=== PATIENT | female | born 1935 | race Caucasian/White ===

== ENCOUNTER 2020-04-11 09:41 | Inpatient (IN) | payer MEDICARE, SELFPAY ==
[2020-04-11] VITALS (32 sets, daily range): BP systolic 125–172; BP diastolic 51–77; PULSE 65–110; RESP 16–29; TEMP 36.5–37.3; O2SAT 74–94
--- NOTE | ~2020-04-11 | XR_ITS ---
EXAMINATION: XR chest 1V portable EXAM DATE: 04/11/2020 10:23 INDICATION: COVID+, hypoxia cough. TECHNIQUE: Portable AP frontal chest x-ray was obtained. There is no prior study for comparison. FINDINGS: Small amount of ill-defined left-sided pneumonia suspected. The lungs are otherwise clear. There are no pleural effusions. The cardiomediastinal silhouette is within normal limits. There is no pneumothorax suspected. There are mild bony degenerative changes. IMPRESSION: Probable small amount of left-sided ill-defined pneumonia. Reviewed, dictated and finalized at location B. [facility] [employer] DEVELOPMENT
--- NOTE | ~2020-04-11 | XR_ITS ---
EXAMINATION: XR chest 1V portable EXAM DATE: 04/15/2020 05:57 INDICATION: : COVID+, hypoxia cough. Hypertension. TECHNIQUE: Portable AP frontal chest x-ray was obtained. Comparison is made to prior examination from 04/11/2020. FINDINGS: There is been some progression in the now patchy multi segmental left basilar and smaller a mount of right basilar acute airspace disease, probably COVID pneumonia given history provided.. The re are no pleural effusions. The cardiomediastinal silhouette is within normal limits. There is no pneumothorax suspected. There are mild bony degenerative changes. IMPRESSION: Progression in left basilar greater than right COVID pneumonia. Reviewed, dictated and finalized at location A. X OPERATOR
--- NOTE | 2020-04-11 09:59 | ECG_ITS ---
Measurements Intervals [place] Rate: 95 P: 29 WV: 178 QRS: -28 QRSD: 89 T: 191 QT: 315 QTc: 397 Interpretive Statements SINUS RHYTHM POSSIBLE LEFT ATRIAL ENLARGEMENT BORDERLINE R WAVE PROGRESSION, ANTERIOR LEADS CONSIDER INFERIOR INFARCT, AGE INDETERMINATE BORDERLINE ST-T WAVE ABNORMALITY- HIGH LATERAL LEADS BASELINE ARTIFACT- I, II, AVR, AVL, AVF, V1, V4-V6 ABNORMAL ECG Electronically Signed On 04-11-2020 10:50:26 [employer] by Rubio Kauffman D.O.
[2020-04-11 10:09] LABS: Basophils Percent Auto 0.3 % (0.2-1.2); Eosinophils Absolute Auto 0.2 K/mm3 (0-0.3); Eosinophils Percent Auto 2.7 % (0-4.4); Hematocrit 41.8 % (37.0-47.0); Hemoglobin 14.3 g/dL (12.0-15.0); Immature Granulocyte Absolute 0.04 K/mm3 (0.00-0.031); Immature Granulocyte Percent A 0.5 % (0-0.5); Lymphocytes Absolute Auto 1.23 K/mm3 (0.9-3.2); Lymphocytes Percent Auto 15.9 % (18.3-44.2); Mean Corpuscular HGB Conc 34.2 g/dl (32-36); Mean Corpuscular Hemoglobin 29.7 pg (26-34); Mean Corpuscular Volume 86.9 fl (80-100); Monocytes Absolute Auto 0.6 K/mm3 (0.1-0.6); Monocytes Percent Auto 7.8 % (2.6-8.5); Neutrophils Absolute Auto 5.6 K/mm3 (1.3-6.7); Neutrophils Percent Auto 72.8 % (45.5-73.1); Platelet Count Result 159 k/mm3 (150-375); Red Blood Count 4.81 M/mm3 (4.2-5.4); Red Cell Distribution Width 11.9 % (11.5-14.5); White Blood Count 7.7 K/mm3 (4.5-10.0)
--- NOTE | 2020-04-11 10:11 | ED.URI ---
HPI - URI/Sore Throat General Chief Complaint: Upper Respiratory Infection Stated Complaint: COVID +. Cough Source: patient Mode of arrival: EMS Limitations: no limitations History of Present Illness HPI Narrative: This is a 84 year old female that presents to the ER for cold symptoms x 10 days. Reports fever, headache, cough, congestion, and myalgias. Tested positive for COVID about a week ago. Denies chest pain or shortness of breath. Related Data Home Medications Medication Instructions Recorded Confirmed aspirin 81 mg tablet,delayed 81 mg PO DAILY 10/28/19 03/30/20 release coenzyme Q10 100 mg capsule 200 mg PO DAILY cap 10/28/19 03/30/20 cyclosporine 0.05 % eye drops in a 1 drop EACH EYE Q12H 10/28/19 03/30/20 dropperette multivit with 1 tablet PO DAILY 10/28/19 03/30/20 uhtvskzs-qznf-KU-lutein 8 mg iron-400 mcg-300 mcg tablet omega-3 fatty acids 1,000 mg 1,000 mg PO DAILY 10/28/19 03/30/20 capsule timolol maleate 0.5 % eye drops 1 drop EACH EYE DAILY ml 10/28/19 03/30/20 vit C,E,zinc,copper-ockey1p 250 1 cap PO DAILY 10/28/19 03/30/20 mg-lutein 5 mg-zeaxanthin 1 mg capsule Allergies Allergy/AdvReac Type Severity Reaction Status Date / Time No Known Allergies Allergy Verified 04/11/20 09:57 Review of Systems Review of Systems: Narrative: CONSTITUTIONAL: Reports fever ENT: Reports rhinorrhea, congestion, sore throat CARDIOVASCULAR: Denies chest pain, or edema. RESPIRATORY: Reports cough. Denies dyspnea. 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 Unspecified glaucoma Unspecified urinary incontinence Surgical History Surgical History (Updated 04/11/20 @ 10:22 by Paty Monzon PA-C) History of hysterectomy Family History Family History Father Hypertension Family history of cardiovascular disease Mother Hypertension Family history of cardiovascular disease Other Family history of elevated blood lipids Family history of glaucoma Social History Social History Smoking status: Never smoker Alcohol intake: current Gender identity (if verbalized by the patient): Female Exam Narrative: Exam Narrative: GENERAL: Elderly, well-nourished, and in no acute distress. HEAD: Normocephalic, atraumatic. EYES: EOMI. ENT: Nares clear, no rhinorrhea or epistaxis. Mucous membranes moist. Oropharynx without tonsillar hypertrophy exudate or other lesions. Bilateral TMs pearly figueroa non-bulging NECK: Supple. No adenopathy or masses. CHEST: No respiratory distress. Rales in the lower lobes. No wheezes or rhonchi HEART: Regular rate and rhythm. No murmur heard. Normal peripheral pulses. EXTREMITIES: Normal range of motion. No edema. SKIN: Warm, dry, no rash. NEURO: No focal deficits. Alert and oriented x3. PSYCH: Normal mood and affect Course Consultations Consultation #1: Spoke with hospitalist about patient and work-up who accepts admission Date: 04/11/20 Time: 13:04 Vital Signs Vital signs: Vital Signs Pulse Rate 103 H 04/11/20 09:46 Respiratory Rate 18 04/11/20 09:46 Blood Pressure 170/77 H 04/11/20 09:46 Pulse Oximetry 93 04/11/20 09:46 Temperature 99.2 F 04/11/20 09:54 Pulse Rate 89 04/11/20 12:45 Respiratory Rate 27 H 04/11/20 12:45 B
[2020-04-11 10:19] LABS: INR 1.1
[2020-04-11 10:20] LABS: Partial Thromboplastin Time 27.4 SECONDS (22.3-36.8)
[2020-04-11 10:24] LABS: Alanine Aminotransferase 28 U/L (4-35); Albumin Level 4.1 g/dL (3.5-5.1); Alkaline Phosphatase 64 U/L (38-126); Anion Gap 9 mmol/L (8-16); Aspartate Amino Transferase 51 U/L (14-36); Bilirubin,Total 0.7 mg/dL (0.2-1.3); Blood Urea Nitrogen 17 mg/dL (7-17); CRP 6.2 mg/dL (<1.0); Calcium 8.9 mg/dL (8.4-10.2); Carbon Dioxide 27 mmol/L (22-30); Chloride 95 mmol/L (98-107); Estimated Glomerular Filt Rate > 60; Glucose 157 mg/dL (65-105); Lactate Dehydrogenase 820 U/L (313-618); Sodium 131 mmol/L (137-145)
[2020-04-11 10:25] LABS: Alveolar/Arterial O2 Gradient 103.5 mmHg; Base Excess ABG 0.6 mEq/l (+/-2.0); Carboxyhemoglobin 0.7 % THb (0-2.0); Fractional Inspired Oxygen 28 %; HCO3 ABG 24.4 mEq/l (22.0-26.0); Methemoglobin ABG 0.2 %THb (0-1.5); Oxygen Content ABG 17.1 %vol (16.0-22.0); Oxygen Saturation ABG 88.8 % (95.0-100.0); Oxyhemoglobin 87.1 % THb (90.0-100.0); PCO2 ABG 36.7 mmHg (35.0-45.0); PO2 ABG 52.8 mmHg (80.0-100.0); PO2 FiO2 Ratio Arterial Blood 1.89 %; pH ABG 7.441 (7.350-7.450)
[2020-04-11 10:26] LABS: Site Drawn LEFT BRACHIAL
[2020-04-11 10:27] LABS: Device NASAL CANNULA
[2020-04-11] MEDS: DEXAMETHASONE SOD PHOS INJ 4 MG/ML VIAL 6 MG IV PUSH (10:35)
--- NOTE | 2020-04-11 11:17 | PC.NURSE ---
received report from Sherice IZAGUIRRE. resting on stretcher. patient's also checked in here as a patient. both (+) covid. patient unable to keep RA sats >90%. planning for probable admission upstairs.
--- NOTE | 2020-04-11 11:55 | PC.NURSE ---
patient ambulated to restroom. sats down after ambulating. provider in room now. aware of planned admission. denies needs. alert. oriented. patient's also being admitted.
--- NOTE | 2020-04-11 12:46 | PC.NURSE ---
patient has orders for admission. also has orders for Remdesivir. labs ordered. waiting for bed assignment.
[2020-04-11] MEDS: REMDESIVIR 200 MG/NS 250 ML 200 MG/250 ML BAG 250 MG IVPB (13:23)
--- NOTE | 2020-04-11 13:27 | PC.NURSE ---
hospitalist SUPPLY CHAIN INTERN at bedside. Remdesivir started now. SBAR has been sent. will call to give report.
--- NOTE | 2020-04-11 13:29 | PC.NURSE ---
report given to RN on 3rd floor. will transfer patient to 332 via stretcher.
--- NOTE | 2020-04-11 13:50 | ADMGEN ---
This patient, Marie Wade, was admitted to [facility] Surg Room 332-02. Patient/family oriented to hospital policies and general routines including ID bracelet, bed and alarms, visiting hours, pain management, procedures, bathroom and other care routines, personal items, smoking policy, room service/diet, and visiting hours. Information on how to activate the Rapid Response Team has been discussed. Patient/Family are encouraged to report perceived risks to care and to ask questions if they do not understand what they are told or what they should do.
--- NOTE | 2020-04-11 14:27 | PM.IMHP ---
H&P: HPI History of Present Illness Date/Time: 04/11/20 14:27 Chief Complaint: Shortness of breath Narrative: Marie Wade is a 84 year old female who came to the emergency room with her . The patient has been having symptoms for at least 10 days. She has fever headache cough congestion and myalgias. The patient tested positive for COVID about a week ago. No chest pain but was short of breath upon exertion. She did not have a pulse ox at home and was not monitoring it. Her O2 saturation was 88.8 on her ABGs. And 52.8 on her PO2. Ferritin 346. AST was 51 ALT and alkaline phosphatase normal. Lactic dehydrogenase 828. C reactive protein 6.2 patient is COVID test was positive on 04/04/2020. Patient is requiring oxygen at 3 L at this time. Patient was given Decadron and remdesivir. patient is being admitted into inpatient status on the date of service of 04/11/2020 Review of Systems Review of Systems: All systems reviewed & are unremarkable except as noted in HPI and below Constitutional: Constitutional: Reports as per HPI and Reports no additional constitutional complaints Eyes: Eyes: Reports as per HPI and Reports no additional eye complaints ENT: Reports system reviewed and no additional complaints, except as documented and Reports Normal hearing present Cardiovascular: Cardiovascular: Reports no additional cardiovascular complaints Respiratory: Respiratory: Reports no additional respiratory complaints and Reports no additional respiratory complaints Gastrointestinal: Gastrointestinal: Reports as per HPI and Reports no additional gastrointestinal complaints Musculoskeletal: Musculoskeletal: Reports no additional musculoskeletal complaints Integumentary/Breasts: Skin/Breast: Reports system reviewed and no additional complaints, except as docu and Reports as per HPI Neurologic: Reports system reviewed and no additional complaints, except as documented, Reports as per HPI and Reports Normal hearing present Psychiatric: Psychiatric: Reports no additional psychiatric complaints and Reports as per HPI Endocrine: Endocrine: Reports no additional endocrine complaints Hematologic/Lymphatic: Hematologic/Lymphatic: Reports no additional hematologic/lymphatic complaints Allergic/Immunologic: Allergic/Immunologic: Reports no additional allergic/immunologic complaints [facility] Past Medical History Medical History (Updated 04/11/20 @ 14:48 by Laura Arnett NP) Actinic keratosis Atherosclerosis of aorta Diverticulosis of colon (without mention of hemorrhage) Essential (primary) hypertension Gastro-esophageal reflux disease with esophagitis Genetic susceptibility to other malignant neoplasm Glaucoma Hyperlipidemia, unspecified Hypothyroidism (acquired) Malignant neoplasm of uterus, part unspecified Nontoxic uninodular goiter Obesity (BMI 30.0-34.9) 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 She desires To have her2 children is a durable power associate attorney. typically she would have her is a durable power associate attorney however he is also sick COVID at this time. The patient desires to be a full code. 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 Lifelong nonsmoker l marijuana illicit drugs. Smoking s
[2020-04-11] MEDS: TIMOLOL MALEATE 0.5% OP SOLN 5 ML BOTTLE 1 DROP EACH EYE (20:45)
[2020-04-12 04:00] VITALS: BP 128/50; PULSE 75; RESP 18; TEMP 36.3; O2SAT 92
[2020-04-12] MEDS: LEVOTHYROXINE SODIUM 100 MCG TABLET PO (05:53)
[2020-04-12 06:51] LABS: Basophils Percent Auto 0.2 % (0.2-1.2); Hematocrit 40.1 % (37.0-47.0); Hemoglobin 13.9 g/dL (12.0-15.0); Immature Granulocyte Absolute 0.04 K/mm3 (0.00-0.031); Immature Granulocyte Percent A 0.6 % (0-0.5); Lymphocytes Absolute Auto 0.83 K/mm3 (0.9-3.2); Lymphocytes Percent Auto 12.5 % (18.3-44.2); Mean Corpuscular HGB Conc 34.7 g/dl (32-36); Mean Corpuscular Hemoglobin 29.8 pg (26-34); Mean Corpuscular Volume 86.1 fl (80-100); Mean Platelet Volume 11.3 fl (7.4-10.4); Monocytes Absolute Auto 0.5 K/mm3 (0.1-0.6); Monocytes Percent Auto 7.8 % (2.6-8.5); Neutrophils Absolute Auto 5.2 K/mm3 (1.3-6.7); Neutrophils Percent Auto 78.9 % (45.5-73.1); Platelet Count Result 154 k/mm3 (150-375); Red Blood Count 4.66 M/mm3 (4.2-5.4); Red Cell Distribution Width 11.8 % (11.5-14.5); White Blood Count 6.6 K/mm3 (4.5-10.0)
[2020-04-12 07:08] LABS: D Dimer 3.15 ug/mL (<0.48)
[2020-04-12 07:55] LABS: Alanine Aminotransferase 25 U/L (4-35); CRP 6.1 mg/dL (<1.0); Lactate Dehydrogenase 698 U/L (313-618)
[2020-04-12 08:00] VITALS: BP 131/60; PULSE 66; RESP 16; TEMP 36.6; O2SAT 95
[2020-04-12] MEDS: ASPIRIN 81 MG ENTERIC TABLET PO (08:44)
[2020-04-12] MEDS: cycloSPORINE 0.4 ML OPHTH SOLUTION 1 DROP EACH EYE (08:44)
[2020-04-12] MEDS: METOPROLOL SUCCINATE EXT REL 50 MG TABCR PO (08:45)
[2020-04-12] MEDS: DEXAMETHASONE SOD PHOS INJ 4 MG/ML VIAL 6 MG IV PUSH (08:45)
[2020-04-12] MEDS: ENOXAPARIN 40 MG/0.4 ML SYRINGE SUB-Q ×2 (08:45→20:25)
[2020-04-12] MEDS: THERAPEUTIC MULTIVITAMINS/MINERALS TAB (*BKC) 1 TABLET PO (08:46)
[2020-04-12] MEDS: OMEGA 3 POLYUNSAT FATTY ACIDS 1 GM CAP PO (08:46)
[2020-04-12] MEDS: OPTI-GEN TAB 1 TABLET PO (08:46)
[2020-04-12] MEDS: PANTOPRAZOLE 40 MG TABLET PO (08:47)
[2020-04-12] MEDS: REMDESIVIR 100 MG/NS 250 ML 100 MG/250 ML BAG 250 MG IVPB (10:20)
[2020-04-12 12:00] VITALS: BP 123/47; PULSE 75; RESP 14; TEMP 36.7; O2SAT 94
[2020-04-12 16:00] VITALS: BP 136/61; PULSE 73; RESP 14; TEMP 36.2; O2SAT 91
--- NOTE | 2020-04-12 16:09 | PM.IMPN ---
Progress Note: A&P Assessment and Plan (1) Pneumonia due to 2019 novel coronavirus: Code(s): U07.1 - COVID-19; J12.89 - Other viral pneumonia Status: Acute Assessment and Plan: Patient has had symptoms for 10 days and test positive 7 days ago -she continues to utilize oxygen is currently at 2 L. Will wean oxygen -continue Remdesivir, Decadron and Lovenox -continue using incentive spirometer (2) Essential (primary) hypertension: Code(s): I10 - Essential (primary) hypertension Status: Acute Assessment and Plan: Last blood pressure 123/47 - Continue with metoprolol (3) Hypothyroidism (acquired): Code(s): E03.9 - Hypothyroidism, unspecified Status: Chronic Assessment and Plan: Continue levothyroxine -no indication to check TSH at this time since she has no hypothyroid or hyperthyroid symptoms (4) Hyperlipidemia, unspecified: Code(s): E78.5 - Hyperlipidemia, unspecified Status: Chronic Assessment and Plan: Continue lovastatin at discharge . (5) Glaucoma: Code(s): H40.9 - Unspecified glaucoma Status: Acute Assessment and Plan: No acute issues -continue with home eye drops (6) Generalized anxiety disorder: Code(s): F41.1 - Generalized anxiety disorder Status: Chronic Assessment and Plan: Patient is overall doing okay today -continue with p.r.n. Ativan Time Spent With Patient Time with patient: 25 - 35 minutes Subjective Date/time seen: 04/12/20 16:09 Interval history: Pt is a 84-year-old female here for COVID-19 pneumonia. Patient was seen today and is doing okay. She is still utilizing oxygen but does not feel short of breath at rest or when walking to the bathroom. Her appetite has been improving and she is forcing herself to eat more. She is trying the Ensure. She states she has always had a murmur. She has some burning when she takes big breaths in her chest but no chest pain. She continues to cough and has some phlegm production. She denies nausea, vomiting, fevers, chills or leg swelling Review of Systems Review of Systems: All systems reviewed & are unremarkable except as noted in HPI and below Exam Narrative: Exam Narrative: General: Well developed well nourished patient in NAD HEENT: normocephalic Neck: supple Neuro: Alert and oriented x4 CV:RRR with systolic murmur Resp: Decreased breath sounds and she is unable to take large respirations without coughing Abd: Soft, non distended. No pain to palpation. Positive bowel sounds Extremities: No swelling, erythema, or pain to palpation. Objective Data Vital Signs Vital Signs: Vital Signs - 24 hr 04/11/20 17:06 04/11/20 20:00 04/11/20 23:54 Temperature 98.0 F 97.7 F 97.8 F Pulse Rate 78 65 Respiratory Rate 18 18 Blood Pressure 132/51 L 125/55 L Pulse Oximetry 90 90 04/12/20 04:00 04/12/20 08:00 04/12/20 12:00 Temperature 97.4 F L 97.8 F 98.1 F Pulse Rate 75 66 75 Respiratory Rate 18 16 14 Blood Pressure 128/50 L 131/60 123/47 L Pulse Oximetry 92 95 94 Intake/Output Intake/Output: Intake & Output 04/09/20 04/10/20 04/11/20 04/12/20 23:59 23:59 23:59 23:59 Intake Total 500 730 Output Total 850 650 Balance -350 80 Meds/Results Medications: Active Medications Generic Name Dose Route Start Last Admin Trade Name Freq PRN Reason Stop Dose Admin Aspirin 81 mg 04/12/20 09:00 04/12/20 08:44 Aspirin 81 Mg Enteric Tablet PO 81 mg DAILY MEGAN Administration Cyclosporine 1 drop 04/11/20 21:00 04/12/20 08:44 Cyclosporine 0.4 Ml Ophth Solution EACH EYE 1 drop Q12HR MEGAN Administration Dexamethasone Sodium Phosphate 6 mg 04/12/20 09:00 04/12/20 08:45 Dexamethasone Sod Phos Inj 4 Mg/Ml Vial IV PUSH 04/21/20 09:01 6 mg DAILY MEGAN Administration Enoxaparin Sodium 40 mg 04/12/20 21:00 Enoxaparin 40 Mg/0.4 Ml Syringe SUB-Q Q12HR SC
[2020-04-12 20:00] VITALS: BP 138/55; PULSE 74; RESP 20; TEMP 37.1; O2SAT 92
[2020-04-12] MEDS: TIMOLOL MALEATE 0.5% OP SOLN 5 ML BOTTLE 1 DROP EACH EYE (20:25)
[2020-04-13] VITALS (7 sets, daily range): BP systolic 112–151; BP diastolic 47–70; PULSE 65–79; RESP 18–20; TEMP 36.1–37.1; O2SAT 88–94
[2020-04-13] MEDS: LEVOTHYROXINE SODIUM 100 MCG TABLET PO (05:45)
[2020-04-13 06:53] LABS: Hematocrit 39.9 % (37.0-47.0); Hemoglobin 13.5 g/dL (12.0-15.0); Mean Corpuscular HGB Conc 33.8 g/dl (32-36); Mean Corpuscular Hemoglobin 29.3 pg (26-34); Mean Corpuscular Volume 86.7 fl (80-100); Mean Platelet Volume 10.8 fl (7.4-10.4); Platelet Count Result 200 k/mm3 (150-375); Red Cell Distribution Width 11.8 % (11.5-14.5); White Blood Count 9.3 K/mm3 (4.5-10.0)
[2020-04-13 07:11] LABS: Alanine Aminotransferase 24 U/L (4-35); Albumin Level 3.3 g/dL (3.5-5.1); Alkaline Phosphatase 52 U/L (38-126); Anion Gap 6 mmol/L (8-16); Aspartate Amino Transferase 39 U/L (14-36); Bilirubin,Total 0.4 mg/dL (0.2-1.3); Blood Urea Nitrogen 20 mg/dL (7-17); CRP 2.9 mg/dL (<1.0); Calcium 8.8 mg/dL (8.4-10.2); Carbon Dioxide 30 mmol/L (22-30); Chloride 97 mmol/L (98-107); Estimated CRCL calculation 56 ml/min; Estimated Glomerular Filt Rate > 60; Glucose 110 mg/dL (65-105); Lactate Dehydrogenase 710 U/L (313-618); Potassium 4.1 mmol/L (3.4-5.0); Sodium 133 mmol/L (137-145)
[2020-04-13] MEDS: OPTI-GEN TAB 1 TABLET PO (09:09)
[2020-04-13] MEDS: METOPROLOL SUCCINATE EXT REL 50 MG TABCR PO (09:09)
[2020-04-13] MEDS: ASPIRIN 81 MG ENTERIC TABLET PO (09:09)
[2020-04-13] MEDS: THERAPEUTIC MULTIVITAMINS/MINERALS TAB (*BKC) 1 TABLET PO (09:09)
[2020-04-13] MEDS: PANTOPRAZOLE 40 MG TABLET PO (09:09)
[2020-04-13] MEDS: DEXAMETHASONE SOD PHOS INJ 4 MG/ML VIAL 6 MG IV PUSH (09:10)
[2020-04-13] MEDS: TIMOLOL MALEATE 0.5% OP SOLN 5 ML BOTTLE 1 DROP EACH EYE (09:10)
[2020-04-13] MEDS: OMEGA 3 POLYUNSAT FATTY ACIDS 1 GM CAP PO (09:10)
[2020-04-13] MEDS: ENOXAPARIN 40 MG/0.4 ML SYRINGE SUB-Q ×2 (09:11→20:12)
[2020-04-13] MEDS: cycloSPORINE 0.4 ML OPHTH SOLUTION 1 DROP EACH EYE ×2 (09:11→20:12)
[2020-04-13] MEDS: REMDESIVIR 100 MG/NS 250 ML 100 MG/250 ML BAG 250 MG IVPB (09:21)
--- NOTE | 2020-04-13 14:50 | PM.IMPN ---
Progress Note: A&P Assessment and Plan (1) Pneumonia due to 2019 novel coronavirus: Code(s): U07.1 - COVID-19; J12.89 - Other viral pneumonia Status: Acute Assessment and Plan: Patient has had symptoms for 11 days and test positive 8 days ago -she continues to utilize oxygen is currently at 2 L. Will wean oxygen -continue Remdesivir, Decadron and Lovenox -continue using incentive spirometer (2) Essential (primary) hypertension: Code(s): I10 - Essential (primary) hypertension Status: Acute Assessment and Plan: Last blood pressure 133/50 - Continue with metoprolol (3) Hypothyroidism (acquired): Code(s): E03.9 - Hypothyroidism, unspecified Status: Chronic Assessment and Plan: Continue levothyroxine -no indication to check TSH at this time since she has no hypothyroid or hyperthyroid symptoms (4) Hyperlipidemia, unspecified: Code(s): E78.5 - Hyperlipidemia, unspecified Status: Chronic Assessment and Plan: Continue lovastatin at discharge . (5) Glaucoma: Code(s): H40.9 - Unspecified glaucoma Status: Acute Assessment and Plan: No acute issues -continue with home eye drops (6) Generalized anxiety disorder: Code(s): F41.1 - Generalized anxiety disorder Status: Chronic Assessment and Plan: Patient is overall doing okay today -continue with p.r.n. Ativan Subjective Date/time seen: 04/13/20 14:50 Interval history: Pt is a 84-year-old female here for COVID-19 pneumonia. Patient was seen today and is doing better than yesterday. She is able to take deeper breaths and does not have any shortness of breath at rest or when walking to the bathroom. She still has the burning in her lungs when she coughs but other than that feels okay. She has a decreased appetite and did not eat lunch but did drink her Ensure. Exam Narrative: Exam Narrative: General: Well developed well nourished patient in NAD HEENT: normocephalic Neck: supple Neuro: Alert and oriented x4 CV:RRR with systolic murmur Resp: Decreased breath sounds and she is unable to take large respirations without coughing, improved today Abd: Soft, non distended. No pain to palpation. Positive bowel sounds Extremities: No swelling, erythema, or pain to palpation. Objective Data Vital Signs Vital Signs: Vital Signs - 24 hr 04/12/20 16:00 04/12/20 20:00 04/13/20 00:00 Temperature 97.2 F L 98.7 F 98 F Pulse Rate 73 74 79 Respiratory Rate 14 20 20 Blood Pressure 136/61 138/55 L 124/63 Pulse Oximetry 91 92 94 04/13/20 05:00 04/13/20 06:00 04/13/20 08:00 Temperature 98.6 F 97.4 F L Pulse Rate 65 72 Respiratory Rate 20 18 Blood Pressure 136/52 L 112/47 L Pulse Oximetry 91 91 91 04/13/20 12:00 Temperature 98.7 F Pulse Rate 68 Respiratory Rate 20 Blood Pressure 133/50 L Pulse Oximetry 91 Intake/Output Intake/Output: Intake & Output 04/10/20 04/11/20 04/12/20 04/13/20 23:59 23:59 23:59 23:59 Intake Total 500 2560 660 Output Total 850 1050 800 Balance -350 1510 -140 Meds/Results Medications: Active Medications Generic Name Dose Route Start Last Admin Trade Name Freq PRN Reason Stop Dose Admin Aspirin 81 mg 04/12/20 09:00 04/13/20 09:09 Aspirin 81 Mg Enteric Tablet PO 81 mg DAILY MEGAN Administration Cyclosporine 1 drop 04/11/20 21:00 04/13/20 09:11 Cyclosporine 0.4 Ml Ophth Solution EACH EYE 1 drop Q12HR MEGAN Administration Dexamethasone Sodium Phosphate 6 mg 04/12/20 09:00 04/13/20 09:10 Dexamethasone Sod Phos Inj 4 Mg/Ml Vial IV PUSH 04/21/20 09:01 6 mg DAILY MEGAN Administration Enoxaparin Sodium 40 mg 04/12/20 21:00 04/13/20 09:11 Enoxaparin 40 Mg/0.4 Ml Syringe SUB-Q 40 mg Q12HR MEGAN Administration Fish Oil 1 gm 04/12/20 09:00 04/13/20 09:10 [place] 3 Polyunsat Fatty Acids 1 Gm Cap PO 1 gm DAILY MEGAN Administration Remdesiv
[2020-04-14] VITALS (10 sets, daily range): BP systolic 113–151; BP diastolic 50–90; PULSE 61–77; RESP 18–20; TEMP 36.3–36.9; O2SAT 86–95
[2020-04-14] MEDS: LEVOTHYROXINE SODIUM 100 MCG TABLET PO (06:11)
[2020-04-14 08:18] LABS: Alanine Aminotransferase 23 U/L (4-35); Anion Gap 3 mmol/L (8-16); Blood Urea Nitrogen 22 mg/dL (7-17); Calcium 8.5 mg/dL (8.4-10.2); Carbon Dioxide 34 mmol/L (22-30); Chloride 96 mmol/L (98-107); Estimated CRCL calculation 56 ml/min; Estimated Glomerular Filt Rate > 60; Glucose 97 mg/dL (65-105); Sodium 133 mmol/L (137-145)
[2020-04-14] MEDS: METOPROLOL SUCCINATE EXT REL 50 MG TABCR PO (09:20)
[2020-04-14] MEDS: ASPIRIN 81 MG ENTERIC TABLET PO (09:20)
[2020-04-14] MEDS: OMEGA 3 POLYUNSAT FATTY ACIDS 1 GM CAP PO (09:20)
[2020-04-14] MEDS: THERAPEUTIC MULTIVITAMINS/MINERALS TAB (*BKC) 1 TABLET PO (09:20)
[2020-04-14] MEDS: ENOXAPARIN 40 MG/0.4 ML SYRINGE SUB-Q ×2 (09:20→21:28)
[2020-04-14] MEDS: OPTI-GEN TAB 1 TABLET PO (09:20)
[2020-04-14] MEDS: PANTOPRAZOLE 40 MG TABLET PO (09:20)
[2020-04-14] MEDS: DEXAMETHASONE SOD PHOS INJ 4 MG/ML VIAL 6 MG IV PUSH (09:21)
[2020-04-14] MEDS: TIMOLOL MALEATE 0.5% OP SOLN 5 ML BOTTLE 1 DROP EACH EYE (09:21)
[2020-04-14] MEDS: cycloSPORINE 0.4 ML OPHTH SOLUTION 1 DROP EACH EYE ×2 (09:21→21:28)
[2020-04-14] MEDS: REMDESIVIR 100 MG/NS 250 ML 100 MG/250 ML BAG 250 MG IVPB (10:44)
--- NOTE | 2020-04-14 14:55 | PM.IMPN ---
Progress Note: A&P Assessment and Plan (1) Pneumonia due to 2019 novel coronavirus: Code(s): U07.1 - COVID-19; J12.89 - Other viral pneumonia Status: Acute Assessment and Plan: Patient has had symptoms for 12 days and test positive 9 days ago -she continues to utilize oxygen is currently at 1 L. Will wean oxygen -home O2 evaluation tomorrow -chest x-ray tomorrow morning -continue Remdesivir, Decadron and Lovenox -continue using incentive spirometer (2) Essential (primary) hypertension: Code(s): I10 - Essential (primary) hypertension Status: Acute Assessment and Plan: Last blood pressure 147/57 - Continue with metoprolol (3) Hypothyroidism (acquired): Code(s): E03.9 - Hypothyroidism, unspecified Status: Chronic Assessment and Plan: Continue levothyroxine -no indication to check TSH at this time since she has no hypothyroid or hyperthyroid symptoms (4) Hyperlipidemia, unspecified: Code(s): E78.5 - Hyperlipidemia, unspecified Status: Chronic Assessment and Plan: Continue lovastatin at discharge (5) Glaucoma: Code(s): H40.9 - Unspecified glaucoma Status: Acute Assessment and Plan: No acute issues -continue with home eye drops (6) Generalized anxiety disorder: Code(s): F41.1 - Generalized anxiety disorder Status: Chronic Assessment and Plan: Patient is overall doing okay today -continue with p.r.n. Ativan Subjective Date/time seen: 04/14/20 14:55 Interval history: Pt is a 84-year-old female here for COVID-19 pneumonia. Patient was seen today and is doing better. She is able to take deeper breaths without coughing. She did have some blood in her sputum today but that was just specks. She denies chest pain, nausea, vomiting, fevers, chills, leg swelling, abdominal pain, or dyspnea on exertion. She is walking to and from the bathroom without issue Exam Narrative: Exam Narrative: General: Well developed well nourished patient in NAD HEENT: normocephalic Neck: supple Neuro: Alert and oriented x4 CV:RRR with systolic murmur Resp: Decreased breath sounds and was able to take deeper breaths today Abd: Soft, non distended. No pain to palpation. Positive bowel sounds Extremities: No swelling, erythema, or pain to palpation. Objective Data Vital Signs Vital Signs: Vital Signs - 24 hr 04/13/20 16:00 04/13/20 20:00 04/14/20 00:00 Temperature 96.9 F L 98.6 F 98.2 F Pulse Rate 67 76 65 Respiratory Rate 20 20 20 Blood Pressure 133/70 151/55 H 129/50 L Pulse Oximetry 92 93 94 04/14/20 04:00 04/14/20 08:00 04/14/20 11:09 Temperature 98.2 F 97.8 F Pulse Rate 68 61 Respiratory Rate 20 20 Blood Pressure 151/53 H 113/51 L Pulse Oximetry 91 90 95 04/14/20 11:10 04/14/20 11:55 04/14/20 12:01 Temperature 98.4 F Pulse Rate 67 Respiratory Rate 20 Blood Pressure 147/57 H Pulse Oximetry 93 92 95 Intake/Output Intake/Output: Intake & Output 04/11/20 04/12/20 04/13/20 04/14/20 23:59 23:59 23:59 23:59 Intake Total 500 2560 2350 980 Output Total 850 1050 800 Balance -350 1510 1550 980 Meds/Results Medications: Active Medications Generic Name Dose Route Start Last Admin Trade Name Freq PRN Reason Stop Dose Admin Aspirin 81 mg 04/12/20 09:00 04/14/20 09:20 Aspirin 81 Mg Enteric Tablet PO 81 mg DAILY MEGAN Administration Cyclosporine 1 drop 04/11/20 21:00 04/14/20 09:21 Cyclosporine 0.4 Ml Ophth Solution EACH EYE 1 drop Q12HR MEGAN Administration Dexamethasone Sodium Phosphate 6 mg 04/12/20 09:00 04/14/20 09:21 Dexamethasone Sod Phos Inj 4 Mg/Ml Vial IV PUSH 04/21/20 09:01 6 mg DAILY MEGAN Administration Enoxaparin Sodium 40 mg 04/12/20 21:00 04/14/20 09:20 Enoxaparin 40 Mg/0.4 Ml Syringe SUB-Q 40 mg Q12HR MEGAN Administration Fish Oil 1 gm 04/12/20 09:00 04/14/20 09:20 [place] 3 Polyunsat
[2020-04-14] MEDS: MELATONIN 3 MG TABLET PO (21:28)
[2020-04-15] VITALS (9 sets, daily range): BP systolic 133–150; BP diastolic 43–61; PULSE 60–75; RESP 15–20; TEMP 36.1–37.1; O2SAT 90–94
[2020-04-15] MEDS: LEVOTHYROXINE SODIUM 100 MCG TABLET PO (05:20)
[2020-04-15 06:58] LABS: Hematocrit 38.8 % (37.0-47.0); Hemoglobin 13.3 g/dL (12.0-15.0); Mean Corpuscular HGB Conc 34.3 g/dl (32-36); Mean Corpuscular Hemoglobin 29.8 pg (26-34); Mean Platelet Volume 10.5 fl (7.4-10.4); Platelet Count Result 219 k/mm3 (150-375); Red Blood Count 4.46 M/mm3 (4.2-5.4); Red Cell Distribution Width 11.8 % (11.5-14.5); White Blood Count 7.3 K/mm3 (4.5-10.0)
[2020-04-15] MEDS: PANTOPRAZOLE 40 MG TABLET PO (08:27)
[2020-04-15] MEDS: OPTI-GEN TAB 1 TABLET PO (08:27)
[2020-04-15] MEDS: OMEGA 3 POLYUNSAT FATTY ACIDS 1 GM CAP PO (08:27)
[2020-04-15] MEDS: ASPIRIN 81 MG ENTERIC TABLET PO (08:27)
[2020-04-15] MEDS: THERAPEUTIC MULTIVITAMINS/MINERALS TAB (*BKC) 1 TABLET PO (08:27)
[2020-04-15] MEDS: DEXAMETHASONE SOD PHOS INJ 4 MG/ML VIAL 6 MG IV PUSH (08:28)
[2020-04-15] MEDS: ENOXAPARIN 40 MG/0.4 ML SYRINGE SUB-Q ×2 (08:28→20:18)
[2020-04-15] MEDS: METOPROLOL SUCCINATE EXT REL 50 MG TABCR PO (08:28)
[2020-04-15] MEDS: cycloSPORINE 0.4 ML OPHTH SOLUTION 1 DROP EACH EYE (08:30)
[2020-04-15 08:54] LABS: Alanine Aminotransferase 24 U/L (4-35); Anion Gap 2 mmol/L (8-16); Blood Urea Nitrogen 21 mg/dL (7-17); Calcium 8.8 mg/dL (8.4-10.2); Carbon Dioxide 36 mmol/L (22-30); Chloride 95 mmol/L (98-107); Estimated CRCL calculation 56 ml/min; Estimated Glomerular Filt Rate > 60; Glucose 94 mg/dL (65-105); Potassium 3.9 mmol/L (3.4-5.0); Sodium 133 mmol/L (137-145)
[2020-04-15 09:20] LABS: CRP 1.9 mg/dL (<1.0)
[2020-04-15] MEDS: REMDESIVIR 100 MG/NS 250 ML 100 MG/250 ML BAG 250 MG IVPB (10:13)
--- NOTE | 2020-04-15 10:54 | PM.IMPN ---
Progress Note: A&P Assessment and Plan (1) Pneumonia due to 2019 novel coronavirus: Code(s): U07.1 - COVID-19; J12.89 - Other viral pneumonia Status: Acute Assessment and Plan: Patient has had symptoms for about 2 weeks and test positive 11 days ago -she continues to utilize oxygen is currently at 1 L -she was off oxygen overnight but had some hypoxia this morning which was not documented and unknown. Home oxygen evaluation was ordered this morning but will move it to tomorrow -chest x-ray shows slight worsening but not concerning since the patient clinically is improving -continue Remdesivir (last dose today), Decadron and Lovenox -continue using incentive spirometer -likely d/c home tomorrow if pt off o2 -suggested she should not have Carlito with her family Saturday (2) Essential (primary) hypertension: Code(s): I10 - Essential (primary) hypertension Status: Acute Assessment and Plan: Last blood pressure 142/53 - Continue with metoprolol (3) Hypothyroidism (acquired): Code(s): E03.9 - Hypothyroidism, unspecified Status: Chronic Assessment and Plan: Continue levothyroxine -no indication to check TSH at this time since she has no hypothyroid or hyperthyroid symptoms (4) Hyperlipidemia, unspecified: Code(s): E78.5 - Hyperlipidemia, unspecified Status: Chronic Assessment and Plan: Continue lovastatin at discharge (5) Glaucoma: Code(s): H40.9 - Unspecified glaucoma Status: Acute Assessment and Plan: No acute issues -continue with home eye drops (6) Generalized anxiety disorder: Code(s): F41.1 - Generalized anxiety disorder Status: Chronic Assessment and Plan: Patient is overall doing okay today -continue with p.r.n. Ativan Subjective Date/time seen: 04/15/20 10:54 Interval history: Pt is a 84-year-old female here for COVID-19 pneumonia. Patient was seen today and is doing better. She is able to take deeper breaths without coughing. She was off o2 overnight but dropped under 90 this morning and had to be put on more o2. She did not feel SOB during this time. She denies chest pain, nausea, vomiting, fevers, chills, leg swelling, abdominal pain, or dyspnea on exertion. She is walking to and from the bathroom without issue. She wants to be discharged by saturday so she can have carlito with her family which I advised her not to do. Exam Narrative: Exam Narrative: General: Well developed well nourished patient in NAD HEENT: normocephalic Neck: supple Neuro: Alert and oriented x4 CV:RRR with systolic murmur Resp: Decreased breath sounds and was able to take deeper breaths today. on 1L of o2 Abd: Soft, non distended. No pain to palpation. Positive bowel sounds Extremities: No swelling, erythema, or pain to palpation. Objective Data Vital Signs Vital Signs: Vital Signs - 24 hr 04/14/20 11:09 04/14/20 11:10 04/14/20 11:55 Temperature Pulse Rate Respiratory Rate Blood Pressure Pulse Oximetry 95 93 92 04/14/20 12:01 04/14/20 15:58 04/14/20 16:00 Temperature 98.4 F 97.9 F Pulse Rate 67 65 Respiratory Rate 20 20 Blood Pressure 147/57 H 148/90 H Pulse Oximetry 95 92 94 04/14/20 20:00 04/15/20 00:00 04/15/20 04:00 Temperature 97.3 F L 97 F L 97.3 F L Pulse Rate 77 64 63 Respiratory Rate 18 16 16 Blood Pressure 148/52 H 133/43 L 145/61 H Pulse Oximetry 90 90 90 04/15/20 08:00 04/15/20 08:28 04/15/20 10:00 Temperature 97.8 F Pulse Rate 60 75 62 Respiratory Rate 16 17 Blood Pressure 142/53 H Pulse Oximetry 91 90 Intake/Output Intake/Output: Intake & Output 04/12/20 04/13/20 04/14/20 04/15/20 23:59 23:59 23:59 23:59 Intake Total 2560 2350 1820 150 Output Total 1050 800 Balance 1510 1550 1820 150 Meds/Results Medications: Active Medications Generic Name Dose Route Start Last Admin Trade Name Freq PRN R
[2020-04-15] MEDS: TIMOLOL MALEATE 0.5% OP SOLN 5 ML BOTTLE 1 DROP EACH EYE (20:18)
[2020-04-15] MEDS: MELATONIN 3 MG TABLET PO (20:18)
[2020-04-16] VITALS (8 sets, daily range): BP systolic 136–158; BP diastolic 52–69; PULSE 60–85; RESP 20; TEMP 36.5–36.8; O2SAT 90–95
[2020-04-16] MEDS: LEVOTHYROXINE SODIUM 100 MCG TABLET PO (05:30)
[2020-04-16] MEDS: ASPIRIN 81 MG ENTERIC TABLET PO (09:53)
[2020-04-16] MEDS: DEXAMETHASONE SOD PHOS INJ 4 MG/ML VIAL 6 MG IV PUSH (09:53)
[2020-04-16] MEDS: ENOXAPARIN 40 MG/0.4 ML SYRINGE SUB-Q (09:53)
[2020-04-16] MEDS: METOPROLOL SUCCINATE EXT REL 50 MG TABCR PO (09:55)
[2020-04-16] MEDS: OMEGA 3 POLYUNSAT FATTY ACIDS 1 GM CAP PO (09:55)
[2020-04-16] MEDS: THERAPEUTIC MULTIVITAMINS/MINERALS TAB (*BKC) 1 TABLET PO (09:55)
[2020-04-16] MEDS: OPTI-GEN TAB 1 TABLET PO (09:55)
[2020-04-16] MEDS: cycloSPORINE 0.4 ML OPHTH SOLUTION 1 DROP EACH EYE (09:55)
[2020-04-16] MEDS: PANTOPRAZOLE 40 MG TABLET PO (09:55)
--- NOTE | 2020-04-16 12:05 | PM.DS ---
DS: Admitting Diagnosis Admitting Diagnosis Admitting Diagnosis: COVID pneumonia DS: Discharge Diagnosis Discharge Diagnosis (1) Pneumonia due to 2019 novel coronavirus: Code(s): U07.1 - COVID-19; J12.89 - Other viral pneumonia Status: Acute Assessment and Plan: Patient completed Remdesivir during her stay and dexamethasone and Lovenox were given up until discharge -the day of discharge the patient was walking around the room with no shortness of breath and ready for discharge -educated on quarantine in guidelines (2) Essential (primary) hypertension: Code(s): I10 - Essential (primary) hypertension Status: Acute Assessment and Plan: Last blood pressure 136/69 - Continue with metoprolol (3) Hypothyroidism (acquired): Code(s): E03.9 - Hypothyroidism, unspecified Status: Chronic Assessment and Plan: Continue levothyroxine (4) Hyperlipidemia, unspecified: Code(s): E78.5 - Hyperlipidemia, unspecified Status: Chronic Assessment and Plan: Continue lovastatin at discharge (5) Glaucoma: Code(s): H40.9 - Unspecified glaucoma Status: Acute Assessment and Plan: No acute issues -continue with home eye drops (6) Generalized anxiety disorder: Code(s): F41.1 - Generalized anxiety disorder Status: Chronic Assessment and Plan: Stable DS: Summary Hospital Course Reason for hospitalization: COVID-19 Hospital Course: Who presented emergency room with her due to COVID-19 found to have pneumonia. Chest x-ray in the ER showed left-sided pneumonia. The patient was hypoxic in the ER although her ABG looks like it was a mixed venous and arterial. The patient was placed on oxygen, Remdesivir and Decadron and was admitted to the hospitalist service. She was hospitalized from 04/11/20-04/16/20 and improved greatly. She required oxygen throughout her stay up until the day of discharge. The day of discharge she was walking around the room with no respiratory distress. Her was also hospitalized with her. They state they do not need any help at home and had no concerns caring for one another although they both seem pretty independent. The patient was educated about the worrisome signs and symptoms to come back to emergency room for and was discharged in stable condition Status at Discharge Functional status at discharge: independent ambulation Overall status at discharge: patient is back to baseline Time Spent with Patient Time attestation: Total time spent providing and/or coordinating discharge services:36 min Time spent: Greater than 30 minutes Exam Narrative: Exam Narrative: General: Well developed well nourished patient in NAD HEENT: normocephalic Neck: supple Neuro: Alert and oriented x4 CV:RRR with systolic murmur Resp: CTA Abd: Soft, non distended. No pain to palpation. Positive bowel sounds Extremities: No swelling, erythema, or pain to palpation. Discharge Plan Discharge Attending physician on discharge: Jatinder Langford Consulting providers: Paty Monzon Discharging Clinician: Hilda Jeff Patient Disposition: Home, Self-Care Activity: as tolerated Diet: regular Discharge Instructions: -Continue isolating yourself and the people you have been around. According to the CDC recommendations, you should quarantine for at least 20 days since your symptoms first appeared. Once these 10 days are up AND you have no more symptoms AND you have not had a fever for 24 hours (without fever medication), you are able to discontinue your quarantine. You still need to wear a mask and socially distance from others. Continue to remain active to avoid blood clots. -follow-up with your primary care physician in 1-2 weeks about this stay -worrisome signs and symptoms to come back to emergency room for: Chest pain, shortness of breath, progressive signific
--- NOTE | 2020-04-16 13:58 | PCRCNOTE ---
Home oxygen evaluation done, pt does not require oxygen.
== END 2020-04-16 15:35 | disposition home or self-care (01) | DRG 177 ==
LOC: ANHED 13:05 → ANH3MEDSUR 15:37
PROVIDERS: Nurse Practitioner; Physician Assistant; Admitting Provider Family Medicine; Emergency Provider Emergency Medicine; PCP Family Medicine; Visit Provider Physician Assistant
DX: U07.1 COVID-19 (principal); J12.89 Other viral pneumonia; J96.01 Acute respiratory failure with hypoxia; I10 Essential (primary) hypertension; E78.5 Hyperlipidemia, unspecified; E03.9 Hypothyroidism, unspecified; H40.9 Unspecified glaucoma; K21.9 Gastro-esophageal reflux disease without esophagitis; F41.1 Generalized anxiety disorder; Z79.82 Long term (current) use of aspirin; Z79.899 Other long term (current) drug therapy
CPT/HCPCS: 36415; 36600; 71045; 80048; 80053; 80076; 82375; 82728; 82805; 83050; 83605; 83615; 83735; 84460; 85025; 85027; 85380; 85610; 85730; 86140; 93005; 94618; 96374; 99291; A9270; J1100; J1650

== ENCOUNTER 2021-08-22 09:29 | Outpatient (CLI) | payer MEDICARE, SELFPAY ==
--- NOTE | ~2021-08-22 | MM_ITS ---
EXAMINATION: MM screening jarret BI w valente HISTORY: Screening mammogram TECHNIQUE: Craniocaudal and mediolateral oblique 3-D tomosynthesis images were obtained and synthetic 2-D images were generated. CAD analysis was submitted and interpreted. COMPARISON: 10/15/2017, 11/21/2015, 11/05/2013 bilateral screening mammogram examinations BREAST PARENCHYMAL COMPOSITION: There are scattered areas of fibroglandular density. FINDINGS: Stable mild asymmetry, stable circumscribed benign lower outer quadrant right intramammary lymph node and stable left breast opacities since 10/15/2017. Minimal benign calcification. There is n o evidence of suspicious mass, calcification, or architectural distortion to suggest malignancy in ei ther breast. There has been no suspicious interval change. IMPRESSION: 1. No mammographic evidence of malignancy. 2. Recommend routine screening mammography in one year. BI-RADS Category 2: Benign finding(s). Reviewed, dictated and finalized at location A.
== END 2021-08-22 09:30 | disposition home or self-care (01) ==
PROVIDERS: PCP Family Medicine; Visit Provider Family Medicine
DX: Z12.31 Encounter for screening mammogram for malignant neoplasm of breast (principal)
CPT/HCPCS: 77063; 77067

== ENCOUNTER 2021-09-01 08:27 | Outpatient (CLI) | payer MEDICARE, SELFPAY ==
--- NOTE | 2021-09-01 08:50 | ECHO_ITS ---
Patient Info Name: Marie Wade Age: 86 years : 1935 Gender: Female Ht: 60 in Wt: 150 lbs BSA: 1.72 m2 HR: 59 bpm BP: 143 / 82 mmHg Technical Quality: Fair Exam Date: 09/01/2021 9:26 AM Exam Location: [facility] Patient Status: Outpatient Admit Date: 09/01/2021 Staff Ordering Physician: Morales Carey MD 5Th Grade Teacher: Buddy Dillon, RUSSELL, RT Attending Provider: Morales Carey MD Referring Physician: Cherry STOCK; Exam Type: CA echo doppler color flow Study Info Indications R01.1 - Cardiac murmur, unspecified Complete two-dimensional, color flow and Doppler transthoracic echocardiogram is performed. Strain analysis performed. Summary 1. Complete two-dimensional, color flow and Doppler transthoracic echocardiogram is performed. 2. Left ventricular chamber dimension is normal. 3. Left ventricular systolic function is normal, estimated at 60-65%. 4. The left ventricular diastolic function is grade I diastolic dysfunction. 5. E/e' 13 is mildly elevated. 6. Global longitudinal strain is normal at -22.2%. 7. Left atrial chamber dimension is mildly enlarged. 8. There is moderate aortic valve stenosis based on a peak velocity of 236 cm/s, mean gradient of 11 mmHg, and aortic valve area of 1.1 cm2. 9. There is moderate aortic valve sclerosis. 10. The mitral valve has mildly calcified annulus. 11. There is mild to moderate mitral valve regurgitation. 12. There is trace pulmonic regurgitation. 13. Dilated inferior vena cava with >50% collapse upon inspiration consistent with elevated right atrial pressure, 10 mmHg. Left Ventricle E/e' 13 is mildly elevated. Global longitudinal strain is normal at -22.2%. Left ventricular chamber dimension is normal. Left ventricular systolic function is normal, estimated at 60-65%. The left ventricular diastolic function is grade I diastolic dysfunction. Right Ventricle Right ventricular systolic function is normal and with normal TAPSE 2.6 cm. Right ventricular chamber dimension is normal. Left Atria Left atrial chamber dimension is mildly enlarged. Right Atria Right atrial chamber dimension is normal. Aortic Valve The aortic valve is not well visualized. Cannot determine number of aortic valve leaflets. There is moderate aortic valve stenosis based on a peak velocity of 236 cm/s, mean gradient of 11 mmHg, and aortic valve area of 1.1 cm2. There is moderate aortic valve sclerosis. There is no aortic valve regurgitation. Pulmonic Valve There is trace pulmonic regurgitation. Mitral Valve The mitral valve has mildly calcified annulus. There is no mitral valve stenosis. There is mild to moderate mitral valve regurgitation. Tricuspid Valve There is no tricuspid valve regurgitation. Pericardium/Pleural There is no pericardial effusion. Inferior Vena Cava Dilated inferior vena cava with >50% collapse upon inspiration consistent with elevated right atrial pressure, 10 mmHg. Aorta The aortic root size at the sinus of Valsalva is normal. Left Ventricular Outflow Tract Name Value Normal LVOT 2D LVOT Diameter 1.9 cm LVOT Doppler
== END 2021-09-01 08:28 | disposition home or self-care (01) ==
LOC: ANHCARD 08:28
PROVIDERS: PCP Family Medicine; Visit Provider Family Medicine
DX: R01.1 Cardiac murmur, unspecified (principal); I35.1 Nonrheumatic aortic (valve) insufficiency; I35.0 Nonrheumatic aortic (valve) stenosis
CPT/HCPCS: 93306

== ENCOUNTER 2021-09-14 00:37 | Day surgery (SDC) | payer MEDICARE, SELFPAY ==
[2021-09-01 13:27] VITALS: BMI 29.2
[2021-09-14 06:32] VITALS: BP 175/59; PULSE 64; RESP 18; TEMP 36.4; O2SAT 96
[2021-09-14] MEDS: LACTATED RINGERS 1,000 ML 150 ML IV CONT (06:39)
--- NOTE | 2021-09-14 07:27 | WPDANESEPPF ---
Anes - Initial Pre Proc Eval Procedure: Operation Date: 09/14/21 07:30 Proposed Procedures p Screening Colonoscopy - Miah Rose MD Date/Time: 09/14/21 07:27 Surgeon: Miah Rose MD Pre Op Diagnosis: family hx of colon ca Patient Data Age: 86 Gender: F Height: 1.52 m Weight: 68.7 kg Last Vital Signs Temp 97.5 F L 09/14/21 06:32 Pulse 64 09/14/21 06:32 Resp 18 09/14/21 06:32 BP 175/59 H 09/14/21 06:32 Pulse Ox 96 09/14/21 06:32 O2 Del Method Room Air 09/14/21 06:32 Allergies Allergy/AdvReac Type Severity Reaction Status Date / Time No Known Allergies Allergy Verified 09/14/21 06:31 Home Medications Medication Instructions Recorded Confirmed Type coenzyme Q10 100 mg capsule 200 mg PO DAILY 10/28/19 09/01/21 History cyclosporine 0.05 % eye drops in a 1 drop ophthalmic (eye) DAILY 10/28/19 09/01/21 History dropperette (Restasis) multivit with 1 tablet PO DAILY 10/28/19 09/01/21 History degllkcp-yvfb-HM-lutein 8 mg iron-400 mcg-300 mcg tablet (Centrum Silver Women) omega-3 fatty acids 1,000 mg 1,000 mg PO DAILY 10/28/19 09/01/21 History capsule (Fish Oil Concentrate) timolol maleate 0.5 % eye drops 1 drp ophthalmic (eye) HS 10/28/19 09/01/21 History vit C,E,zinc,copper-fvuca8j 250 1 cap PO DAILY 10/28/19 09/01/21 History mg-lutein 5 mg-zeaxanthin 1 mg capsule (Ocuvite Adult 50 Plus) aspirin 81 mg tablet 81 mg PO DAILY 04/11/20 09/01/21 History levothyroxine 100 mcg tablet 100 mcg PO DAILY #90 tabs 10/25/20 09/01/21 Rx lovastatin 20 mg tablet 20 mg PO DAILY #90 tabs 10/25/20 09/01/21 Rx omeprazole 20 mg capsule,delayed 20 mg PO DAILY #90 caps 10/25/20 09/01/21 Rx release clobetasol 0.05 % scalp solution 1 applic topical DAILY 01/20/21 09/01/21 History urea 40 % topical cream 1 applic topical BID 01/20/21 09/01/21 History alprazolam 0.25 mg tablet (Xanax) 0.25 mg PO TID PRN anxiety #30 tabs 08/10/21 09/01/21 Rx metoprolol succinate 50 mg 50 mg PO BID 09/01/21 09/01/21 History tablet,extended release 24 hr Patient hx anesthesia problems: none Family hx anesthesia problems: none Results Review: All pre-operative results and documents have been reviewed as part of the pre-operative evaluation. 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 She desires To have her2 children is a durable power finance attorney. typically she would have her is a durable power finance attorney however he is also sick COVID at this time. The patient desires to be a full code. 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 Lifelong nonsmoker l marijuana illicit drugs. Smoking status: Never smoker Alcohol intake: current Drinks per week: 3 Alcohol use de
--- NOTE | 2021-09-14 07:48 | PM.IMHP ---
H&P: HPI History of Present Illness Date/Time: 09/14/21 07:48 Chief Complaint: Family history of colon cancer Narrative: this is an 86-year-old white female patient who presents for colonoscopy. Family history is significant her mother had colon cancer. Patient reports that her current weight appetite and bowel movements are normal. She denies abdominal pain. She has had no bleeding. Her last colonoscopy was for 5 years prior to this time. Patient presents today for neoplasia screening. 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 She desires To have her2 children is a durable power manager star. typically she would have her is a durable power manager star however he is also sick COVID at this time. The patient desires to be a full code. 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 Lifelong nonsmoker l marijuana illicit drugs. Smoking status: Never smoker Alcohol intake: current Drinks per week: 3 Alcohol use details: WINE Substance use: never Substance use type: does not use Living arrangements: with family Gender identity (if verbalized by the patient): Female Sexual Orientation (if Verbalized by the Patient): Straight or Heterosexual Spiritual care concerns: No Meds Home Medications and Allergies Home Medications Medication Instructions Recorded Confirmed Type coenzyme Q10 100 mg capsule 200 mg PO DAILY 10/28/19 09/01/21 History cyclosporine 0.05 % eye drops in a 1 drop ophthalmic (eye) DAILY 10/28/19 09/01/21 History dropperette (Restasis) multivit with 1 tablet PO DAILY 10/28/19 09/01/21 History pcrzvgth-fuej-IU-lutein 8 mg iron-400 mcg-300 mcg tablet (Centrum Silver Women) omega-3 fatty acids 1,000 mg 1,000 mg PO DAILY 10/28/19 09/01/21 History capsule (Fish Oil Concentrate) timolol maleate 0.5 % eye drops 1 drp ophthalmic (eye) HS 10/28/19 09/01/21 History vit C,E,zinc,copper-uqcqh0s 250 1 cap PO DAILY 10/28/19 09/01/21 History mg-lutein 5 mg-zeaxanthin 1 mg capsule (Ocuvite Adult 50 Plus) aspirin 81 mg tablet 81 mg PO DAILY 04/11/20 09/01/21 History levothyroxine 100 mcg tablet 100 mcg PO DAILY #90 tabs 10/25/20 09/01/21 Rx lovastatin 20 mg tablet 20 mg PO DAILY #90 tabs 10/25/20 09/01/21 Rx omeprazole 20 mg capsule,delayed 20 mg PO DAILY #90 caps 10/25/20 09/01/21 Rx release clobetasol 0.05 % scalp solution 1 applic topical DAILY 01/20/21 09/01/21 History urea 40 % topical cream 1 applic topical BID 01/20/21 09/01/21 History alprazolam 0.25 mg tablet (Xanax) 0.25 mg PO TID PRN anxiety #30 tabs 08/10/21 09/01/21 Rx metoprolol succinate 50 mg 50 mg PO BID 09/01/21 09/01/21 History table
[2021-09-14 07:52] VITALS: BP 132/51; PULSE 63; RESP 18; O2SAT 99
[2021-09-14 08:02] VITALS: BP 100/40; PULSE 59; RESP 18; O2SAT 100
[2021-09-14 08:12] VITALS: BP 121/54; PULSE 62; RESP 19; O2SAT 100
== END 2021-09-14 08:24 | disposition home or self-care (01) ==
PROVIDERS: PCP Family Medicine; Visit Provider Internal Medicine Gastroenterology
PROC: 0DJD8ZZ Inspection of Lower Intestinal Tract, Via Natural or Artificial Opening Endoscopic (ICD-10-PCS; CPT 45378; principal; 2021-09-14 07:30)
DX: Z12.11 Encounter for screening for malignant neoplasm of colon (principal); D12.5 Benign neoplasm of sigmoid colon; K57.30 Diverticulosis of large intestine without perforation or abscess without bleeding; I70.0 Atherosclerosis of aorta; I10 Essential (primary) hypertension; I35.8 Other nonrheumatic aortic valve disorders; K21.9 Gastro-esophageal reflux disease without esophagitis; E78.5 Hyperlipidemia, unspecified; E03.9 Hypothyroidism, unspecified; K64.8 Other hemorrhoids; H40.9 Unspecified glaucoma; Z85.42 Personal history of malignant neoplasm of other parts of uterus
CPT/HCPCS: 45385; 88305; J2704; J7120

== ENCOUNTER 2022-03-07 10:50 | Outpatient (CLI) | payer MEDICARE, SELFPAY ==
[2022-03-07 20:03] LABS: Alanine Aminotransferase 29 U/L (6-35); Albumin Level 4.6 g/dL (3.5-5.1); Alkaline Phosphatase 69 U/L (38-126); Anion Gap 11 mmol/L (8-16); Aspartate Amino Transferase 33 U/L (14-36); Bilirubin,Total 0.7 mg/dL (0.2-1.3); Blood Urea Nitrogen 36 mg/dL (7-17); Carbon Dioxide 26 mmol/L (22-30); Chloride 100 mmol/L (98-107); Estimated Glomerular Filt Rate 60; Glucose 113 mg/dL (65-110); Potassium 4.8 mmol/L (3.4-5.0); Sodium 137 mmol/L (137-145)
[2022-03-07 20:30] LABS: Thyroid Stimulating Hormone 0.027 uIU/mL (0.465-4.680)
== END 2022-03-07 10:51 | disposition home or self-care (01) ==
LOC: ANHGOSHLAB 10:54
PROVIDERS: PCP Family Medicine; Visit Provider Family Medicine
DX: E03.9 Hypothyroidism, unspecified (principal); I10 Essential (primary) hypertension; E78.5 Hyperlipidemia, unspecified
CPT/HCPCS: 36415; 80053; 84443

== ENCOUNTER → 2022-09-19 11:00 | Outpatient (CLI) | payer MEDICARE, SELFPAY ==
--- NOTE | ~2022-09-19 | US_ITS ---
EXAMINATION: US venous doppler [facility] DATE: 09/19/2022 11:25 INDICATION: Left lower limb swelling TECHNIQUE: Grayscale ultrasound images without and with compression and Doppler ultrasound images of the left lower extremity veins were obtained. COMPARISON: None. FINDINGS: The visualized portions of left common femoral vein, profunda (deep) femoral vein, femoral vein, popl iteal vein, peroneal veins, posterior tibial veins, gastrocnemius vein and greater saphenous vein out flow are patent. IMPRESSION: 1. No deep venous thrombosis in the left lower limb. Reviewed, dictated and finalized at location B.
== END ==
PROVIDERS: PCP Family Medicine
DX: R22.43 Localized swelling, mass and lump, lower limb, bilateral (principal)
CPT/HCPCS: 93971

== ENCOUNTER 2022-11-21 10:07 | Outpatient (CLI) | payer MEDICARE, SELFPAY ==
--- NOTE | ~2022-11-21 | US_ITS ---
EXAMINATION: US retroperitoneal duplex ltd DATE: 11/21/2022 11:26 INDICATION: Hypertension and stage III chronic kidney disease TECHNIQUE: Multiple grayscale, color Doppler, and pulsed Doppler images of the kidneys and renal shelbi sarah were obtained. COMPARISON: None. FINDINGS: The aorta peak systolic velocity is 79 cm/s. The right renal artery peak systolic velocity is 87 cm/s in the proximal segment, 73 cm/s in the mid segment, and 72 cm/s in the distal segment. The left daniele al artery peak systolic velocity is 73 cm/s in the proximal segment, 76 cm/s in the mid segment, and 57 cm/s in the distal segment. IMPRESSION: 1. No Doppler evidence of renal artery stenosis. Reviewed, dictated and finalized at location A.
== END 2022-11-21 10:08 | disposition home or self-care (01) ==
PROVIDERS: PCP Family Medicine; Visit Provider Family Medicine
DX: R09.89 Other specified symptoms and signs involving the circulatory and respiratory systems (principal)
CPT/HCPCS: 93976

== ENCOUNTER 2022-12-08 14:51 | Emergency (ER) | payer MEDICARE, SELFPAY ==
--- NOTE | ~2022-12-08 | XR_ITS ---
EXAMINATION: XR wrist RT min 3V INDICATION: Right wrist pain TECHNIQUE: Four views of the right wrist are obtained. COMPARISON: None available FINDINGS: Bone alignment is normal. There is no fracture. 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 There is mild to moderate osteoarthritis of the visualiz ed metacarpophalangeal joints and interphalangeal joints. There is ventral soft tissue swelling overl hoa the distal forearm. IMPRESSION: 1. Osteoarthritis and soft tissue swelling without acute osseous abnormality. Reviewed, dictated and finalized at location F.
[2022-12-08 15:05] VITALS: BP 126/57; PULSE 88; RESP 19; TEMP 36.5; O2SAT 96
--- NOTE | 2022-12-08 15:14 | ED.UPPEXIN ---
HPI - Extremity Injury (Upper) General Chief Complaint: Extremity Injury, Upper <HILDA Castro BC - Last Filed: 12/08/22 16:57> Stated Complaint: Fell on right hand <HILDA Castro BC - Last Filed: 12/08/22 16:57> Time Seen by Provider: 12/08/22 15:08 <HILDA Castro BC - Last Filed: 12/08/22 16:57> Source: patient and RN notes reviewed <HILDA Castro BC - Last Filed: 12/08/22 16:57> Mode of arrival: ambulatory <HILDA Castro BC - Last Filed: 12/08/22 16:57> Limitations: no limitations <HILDA Castro BC - Last Filed: 12/08/22 16:57> History of Present Illness HPI narrative: Patient presents today complaining of pain, bruising, and swelling to the right hand and wrist after she tripped and fell yesterday onto an outstretched hand. Denies numbness or tingling in the hand or fingers. She reports minimal pain that increases when she conciliator or grasps an object. She took some Tylenol for pain, which did help. <HILDA Castro BC - Last Filed: 12/08/22 16:57> Related Data Home Medications: Home Medications Medication Instructions Recorded Confirmed coenzyme Q10 100 mg capsule 200 mg PO DAILY 10/28/19 12/08/22 cyclosporine 0.05 % eye drops in a 1 drop ophthalmic (eye) DAILY 10/28/19 12/08/22 dropperette (Restasis) fznnkvci-hcxe-yrwg 8 mg-folic 400 1 tablet PO DAILY 10/28/19 12/08/22 mcg-K 50 mcg-lutein 300 mcg tablet (Centrum Silver Women) omega-3 fatty acids 1,000 mg 1,000 mg PO DAILY 10/28/19 12/08/22 capsule (Fish Oil Concentrate) timolol maleate 0.5 % eye drops 1 drp ophthalmic (eye) HS 10/28/19 12/08/22 aspirin 81 mg tablet 81 mg PO DAILY 04/11/20 12/08/22 clobetasol 0.05 % scalp solution 1 applic topical DAILY 01/20/21 12/08/22 <HILDA Castro BC - Last Filed: 12/08/22 16:57> Allergies/Adverse Reactions: Allergies Allergy/AdvReac Type Severity Reaction Status Date / Time No Known Allergies Allergy Verified 11/26/22 09:28 <HILDA Castro BC - Last Filed: 12/08/22 16:57> Review of Systems Review of Systems: CONSTITUTIONAL: Denies body aches, fever, chills, or sweats. EYES: Denies visual changes, redness, or discharge. ENT: Denies rhinorrhea, congestion, sore throat, or otalgia. CARDIOVASCULAR: Denies chest pain, palpitations, or edema. RESPIRATORY: Denies cough or dyspnea. GASTROINTESTINAL: Denies abdominal pain, nausea, vomiting, or diarrhea. GENITOURINARY: Denies dysuria or hematuria. SKIN: Denies rash, itching, or wounds. MUSCULOSKELETAL: Denies back pain, or myalgia.+ right hand injury NEUROLOGIC: Denies headache, numbness, tingling, or weakness. PSYCH: Denies depression or anxiety. 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
== END 2022-12-08 16:40 | disposition home or self-care (01) ==
PROVIDERS: Emergency Provider Nurse Practitioner Family; PCP Family Medicine
DX: S63.501A Unspecified sprain of right wrist, initial encounter (principal); S66.911A Strain of unspecified muscle, fascia and tendon at wrist and hand level, right hand, initial encounter; W01.0XXA Fall on same level from slipping, tripping and stumbling without subsequent striking against object, initial encounter; I70.0 Atherosclerosis of aorta; I10 Essential (primary) hypertension; K21.00 Gastro-esophageal reflux disease with esophagitis, without bleeding; E78.5 Hyperlipidemia, unspecified; E03.9 Hypothyroidism, unspecified; E66.9 Obesity, unspecified; Z68.29 Body mass index [BMI] 29.0-29.9, adult; H40.9 Unspecified glaucoma
CPT/HCPCS: 73110; 99213; G0463

== ENCOUNTER 2023-03-11 08:48 | Outpatient (CLI) | payer MEDICARE, SELFPAY ==
--- NOTE | ~2023-03-11 | DEXA_ITS ---
Bone Density Report Name: AYO MEEHAN Age: 87 Sex: Female Ethnicity: White Date of : 1935 Indication: postmenopausal; screening for osteoporosis; height loss; hysterectomy; Referring Provider: GLORIA CHAPA Study: Bone densitometry was performed. Exam Date: March 11, 2023 Accession number: [id number] Bone Density: Region BMD T-score Z-score Classification AP Spine(L1-L4) 1.010 -0.3 2.5 Normal World Health Organization criteria for BMD impression classify patients as: Normal (T-score at or above -1.0), Osteopenia (T-score between -1.0 and -2.5), or Osteoporosis (T-score at or below -2.5). Clinical Information Provided by Patient: Has used the following medications: Vitamin D, Calcium Has the following medical conditions: Hysterectomy Patient maximum height was 63 Menopause Age: 52 Does not regularly consume dairy products Onset of menses at age 16 Number of children 2 Impression: The patient has normal bone mass. Discussion: LOW RISK OF FRACTURE; BONE DENSITY IS WELL ABOVE THE MINIMUM DESIRABLE LEVEL AND ABOVE AVERAGE FOR AGE AND SEX AT ALL SKELETAL SITES TESTED. This person's bone density is above expected limits for age and sex. This is rarely clinically significant, but should be pursued if there are significant musculoskeletal complaints. The patient should follow a healthful lifestyle (good nutrition with adequate calcium and vitamin D, and appropriate weight-bearing exercise). Follow-Up: Consider repeating this study in 5 years or sooner if there is some new clinical indication. Reported by: CHACHO on 03/11/2023 9:09:00 AM. Reviewed, dictated and finalized at location AKadeem PATEL
== END 2023-03-11 08:49 | disposition home or self-care (01) ==
LOC: ANHIMG 08:49
PROVIDERS: PCP Family Medicine; Visit Provider Physician Assistant
DX: E78.5 Hyperlipidemia, unspecified (principal); Z78.0 Asymptomatic menopausal state
CPT/HCPCS: 77080

== ENCOUNTER 2024-03-09 09:56 | Outpatient (CLI) | payer MEDICARE, SELFPAY ==
--- NOTE | ~2024-03-09 | MM_ITS ---
EXAMINATION: MM screening jarret BI w valente HISTORY: Screening mammogram TECHNIQUE: Craniocaudal and mediolateral oblique 3-D tomosynthesis images were obtained and synthetic 2-D images were generated. CAD analysis was submitted and interpreted. COMPARISON: 08/22/2021 BREAST PARENCHYMAL COMPOSITION:Not Dense. The breasts are almost entirely fatty FINDINGS: Stable low-density left breast mass. No suspicious mass, calcification, or architectural di stortion are identified in either breast to suggest malignancy. There has been no suspicious interval change. IMPRESSION: No mammographic evidence of malignancy. Recommend routine screening mammography in one year. BI-RADS Category 2: Benign finding(s). Reviewed, dictated and finalized at location . 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
== END 2024-03-09 09:57 | disposition home or self-care (01) ==
LOC: ANHIMG 09:58
PROVIDERS: PCP Family Medicine; Visit Provider Family Medicine
DX: Z12.31 Encounter for screening mammogram for malignant neoplasm of breast (principal)
CPT/HCPCS: 77063; 77067

== ENCOUNTER 2024-03-10 08:47 | Emergency (ER) | payer MEDICARE, SELFPAY ==
[2024-03-10 09:00] VITALS: BP 161/62; PULSE 64; RESP 14; TEMP 36.4; O2SAT 96
--- NOTE | 2024-03-10 09:12 | ED_ITS ---
HPI - Ear Problem General Chief complaint: Ear Stated complaint: Ear Pain Time Seen by Provider: 03/10/24 09:25 Source: patient and RN notes reviewed Mode of arrival: ambulatory Limitations: no limitations History of Present Illness HPI Narrative: 88-year-old female presents with concern for left ear wax impaction. She reports she has trouble hearing out of the ear and when she went to get her hearing aids they told her she had a wax buildup. She has been using debrox for 3 days without relief. She denies pain or drainage from the ear. MD Complaint: ear pain Related Data Home Medications Medication Instructions Recorded Confirmed coenzyme Q10 100 mg capsule 200 mg PO DAILY 10/28/19 01/30/24 cyclosporine 0.05 % eye drops in a 1 drop ophthalmic (eye) DAILY 10/28/19 01/30/24 dropperette (Restasis) pskzskyi-buri-jldm 8 mg-folic 400 1 tablet PO DAILY 10/28/19 01/30/24 mcg-K 50 mcg-lutein 300 mcg tablet (Centrum Silver Women) omega-3 fatty acids 1,000 mg 1,000 mg PO DAILY 10/28/19 01/30/24 capsule (Fish Oil Concentrate) timolol maleate 0.5 % eye drops 1 drp ophthalmic (eye) HS 10/28/19 01/30/24 aspirin 81 mg tablet 81 mg PO DAILY 04/11/20 01/30/24 biotin 10,000 mcg capsule mcg PO 10/08/23 01/30/24 calcium 250 mg (phosphate)-vit D3 1 tablet PO DAILY 10/08/23 01/30/24 12.5 mcg (500 unit) chewable tablet (Citracal-D3 Gummies) eqzfhjau-ddo-sfzwe0 250 mg-dha 90 1 cap PO DAILY 10/08/23 01/30/24 mg-epa 160 xh-uaaf-yyeb-zeax capsule (Ocuvite Adult 50 Plus) rosuvastatin 10 mg tablet 10 mg PO DAILY 01/30/24 01/30/24 Allergies Allergy/AdvReac Type Severity Reaction Status Date / Time amlodipine AdvReac edema Verified 03/10/24 09:10 Review of Systems Review of Systems: CONSTITUTIONAL: Denies malaise, chills, sweats, or fever. EYES: Denies visual changes, redness, or discharge. ENT: Denies rhinorrhea, congestion, sinus pain, and sore throat. Reports difficulty hearing from the left ear CARDIOVASCULAR: Denies chest pain, palpitations, or edema. RESPIRATORY: Denies cough. Denies dyspnea. GASTROINTESTINAL: Denies abdominal pain, nausea, vomiting, diarrhea SKIN: Denies rash or itching. MUSCULOSKELETAL: Denies myalgia. NEUROLOGIC: Denies headache. 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 She desires To have her2 children is a durable power civil rights attorney. typically she would have her is a durable power civil rights attorney however he is also sick COVID at this time. The patient desires to be a full code. 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 Lifelong nonsmoker l marijuana illicit drugs. Smoking status: Never smoker Alcohol intake: current Drinks per week: 3 Alcohol use details: WINE Substance use: never Substance use type: does not use Lack of Transportation: No Lack of Food: Never True Current Housing: I Have Housing Concerned About Future Housing: No Difficulty Paying Gas/Electric Bills: No Difficulty Paying for Meds: No Currently Unemployed: No Education: High School Diploma/GED Difficulty w/ Childcare or Family Care: No Living arrangements: with family Occupation/Education: retired Gender identity (if verbalized by the patient): Female Sexual Orientation (if Verbalized by the Patient): Straight or Heterosexual Spiritual care concerns: No Comments At time of signature, agree with nursing past medical, surgical, social and family history. There is no relevant family history pertinent to the presenting complaint Exam Narrative: GENERAL: Well-appearing, well-nourished, and in no acute distress. HEAD: Normocephalic EYES: PERRLA, conjunctivae clear ENT: Nares clear. Mucous membranes moist. Right TM pearly figueroa with dull light reflex, left TM not visible due to cerumen impaction; no tragal tenderness. Oropharynx not erythematous without lesions. Tonsils not enlarged and without exudate, no drooling, no hoarseness, no trismus, uvula midline. NECK: Supple. No lymphadenopathy CHEST: No respiratory distress, speaks in full sentences. HEART: Regular rate and rhythm. No murmur heard. SKIN: Warm, dry, no rash. NEURO: Alert and oriented x3. PSYCH: Normal mood and affect Course Course Emergency Course: Patient is aware of diagnosis, understands and agrees to treatment plan. Anticipatory guidance given. Patient agrees to follow-up as directed and is aware of reasons to seek care at the emergency department. Portions of this record may have been created with voice recognition software Level of Care: Express Care Visit Vital Signs Vital signs: Vital Signs Temperature 97.5 F L 03/10/24 09:00 Pulse Rate 64 03/10/24 09:00 Respiratory Rate 14 03/10/24 09:00 Blood Pressure 161/62 H 03/10/24 09:00 Pulse Oximetry 96 03/10/24 09:00 Oxygen Delivery Room Air 03/10/24 09:00 Temperature 97.5 F L 03/10/24 09:00 Pulse Rate 64 03/10/24 09:00 Respiratory Rate 14 03/10/24 09:00 Blood Pressure 161/62 H 03/10/24 09:00 Pulse Oximetry 96 03/10/24 09:00 Oxygen Delivery Room Air 03/10/24 09:00 Reviewed. Procedures Ear Wax Removal Left Ear: Ear Wax Removal Date: 03/10/24 Ear Wax Removal Time: 09:25 Results: Re-examined: cerumen removed completely TM Examination: TM(s) intact, normal appearance Ear Canal Exam: atraumatic Patient Tolerated Procedure: well Complications: no problems Technique: ear canal irrigated and ear canal curetted Medical Decision Making MDM Narrative Medical decision making narrative: I evaluated this in the [facility]. History is obtained from patient who is an independent historian and physical exam was performed.? Available medical records were reviewed. ? Exam findings and relevant testing show no acute concerns or changes; patient is non-toxic appearing and is in no distress. Differential diagnosis considered: Figueroa virus, strep pharyngitis, allergic rhinitis, upper respiratory tract infection, sinusitis, rhinosinusitis, nasopharyngitis. viral pharyngitis, otitis media, otitis externa, otitis effusio n, cerumen impaction, foreign body. Exam findings show no acute concerns or changes; patient is non-toxic appearing and is in no distress. Patient is appropriate for outpatient treatment and follow-up. ? Differential diagnosis and treatment plan were discussed with the patient. Patient agrees with discussion and after shared medical decision making agrees with plan of care. All questions were answered to the patient's satisfaction. Patient is appropriate for outpatient treatment and follow-up. Vital Signs Vital Signs: Vital Signs Temperature 97.5 F L 03/10/24 09:00 Pulse Rate 64 03/10/24 09:00 Respiratory Rate 14 03/10/24 09:00 Blood Pressure 161/62 H 03/10/24 09:00 Pulse Oximetry 96 03/10/24 09:00 Oxygen Delivery Room Air 03/10/24 09:00 Temperature 97.5 F L 03/10/24 09:00 Pulse Rate 64 03/10/24 09:00 Respiratory Rate 14 03/10/24 09:00 Blood Pressure 161/62 H 03/10/24 09:00 Pulse Oximetry 96 03/10/24 09:00 Oxygen Delivery Room Air 03/10/24 09:00 Critical Care Time Critical Care Time Critical Care Time: No Discharge Plan Discharge Clinical Impression: Impacted cerumen, left ear Patient Disposition: Home, Self-Care Condition: Stable Instructions: General Patient Instructions Additional Instructions: Ear wax impaction is when ear wax builds up enough to cause symptoms. Normally, ear wax helps to protect the insides of the ears and prevents injury or infection. But having too much ear wax can cause symptoms such as pain and trouble hearing. The medical term for ear wax is cerumen. The insides of the ears do not usually need to be cleaned. Sticking anything into the ears can push the wax in deeper and cause impaction. How is ear wax impaction treated? There are several treatments to remove impacted ear wax. Treatment is usually only needed if the impaction is causing bothersome symptoms. Treatment is not recommended for removing ear wax in people who have no symptoms, even if their ears are impacted. There are several different ways to remove ear wax: ?Ear drops - Special ear drops can soften ear wax and help it to drain out. Ear drops are not usually safe for people with an ear infection or damage to the eardrum. ?Rinsing - In some cases, a doctor or nurse can remove impacted ear wax by squirting water (or a special liquid) into the ear to rinse it out. ?Special tools - A doctor or nurse might use a special tool to remove ear wax. There are different types of tools that can do this safely. These include small sticks, hooks, and spoons. There are also tools that use suction to pull the wax out. If you have recurrent cerumen impaction and no significant ear disease, you can use hydrogen peroxide to soften the wax so it comes out on its own. Do not put any tools on q-tips into your ears. Please use any drops that may have been prescribed to you. Follow up with your doctor if you have any new symptoms or concerns. Prescriptions: No Action rosuvastatin 10 mg tablet 10 mg PO DAILY Jardiance 10 mg tablet 10 mg PO DAILY Qty: 90 3RF levothyroxine [Synthroid] 75 mcg tablet 75 mcg PO DAILY Qty: 90 3RF alprazolam [Xanax] 0.25 mg tablet 0.25 mg PO TID PRN (Reason: anxiety) Qty: 10 1RF biotin 10,000 mcg capsule PO calcium phosphate-vitamin D3 [Citracal-D3 Gummies] 250 mg-12.5 mcg (500 unit) tablet,chewable 1 tablet PO DAILY Ocuvite Adult 50 Plus 250 mg (90 mg-160 mg) capsule 1 cap PO DAILY aspirin 81 mg Tablet 81 mg PO DAILY Centrum Silver Women 8 mg iron-400 mcg-300 mcg tablet 1 tablet PO DAILY coenzyme Q10 100 mg capsule 200 mg PO DAILY omega-3 fatty acids [Fish Oil Concentrate] 1,000 mg capsule 1,000 mg PO DAILY Restasis 0.05 % dropperette 1 drop EACH EYE DAILY timolol maleate 0.5 % drops 1 drp ophthalmic (eye) HS Rx Instructions: 1 drp into the eye(s) BOTH eyes lisinopril 20 mg tablet 20 mg PO DAILY Qty: 100 1RF Hold Instructions: .Provider Order metoprolol succinate 50 mg tablet extended release 24 hr See Rx Instructions .ROUTE .COMPLEX Qty: 200 1RF Dose Instruction: TAKE 1 TABLET BY MOUTH TWICE DAILY Rx Instructions: TAKE 1 TABLET BY MOUTH TWICE DAILY omeprazole 20 mg capsule,delayed release(DR/EC) 20 mg PO DAILY Qty: 100 1RF Follow-up/Referrals: Morales Carey MD [Primary Care Provider] - Time of Disposition: 09:34
== END 2024-03-10 09:36 | disposition home or self-care (01) ==
PROVIDERS: Emergency Provider Nurse Practitioner; PCP Family Medicine
DX: H61.22 Impacted cerumen, left ear (principal); E78.5 Hyperlipidemia, unspecified; E03.9 Hypothyroidism, unspecified; I10 Essential (primary) hypertension
CPT/HCPCS: 69210; 99212; G0463

== ENCOUNTER 2024-06-29 10:50 | Emergency (ER) | payer MEDICARE, SELFPAY ==
[2024-06-29 11:03] VITALS: BP 129/70; PULSE 75; RESP 20; TEMP 36.8; O2SAT 97
[2024-06-29 11:27] LABS: EDCOVIDSCREEN Negative (Negative); EDINFLUASCREEN Positive (Negative); EDINFLUBSCREEN Negative (Negative)
--- NOTE | 2024-06-29 11:37 | ED.URI ---
HPI - URI/Sore Throat General Chief Complaint: Upper Respiratory Infection Stated Complaint: Sinus/cough Source: patient and RN notes reviewed Mode of arrival: ambulatory Limitations: no limitations History of Present Illness HPI Narrative: 88-year-old female presented for complaint of headache, body aches, sinus pressure/congestion, cough, fever/chills. Onset 2 days. Denies sob, wheezing, n/v/d. Taking Zyrtec and Tylenol. MD elicited complaint: cough Related Data Home Medications ?Medication ?Instructions ?Recorded ?Confirmed ?Last Taken ?Type coenzyme Q10 100 mg capsule 200 mg PO DAILY 10/28/19 06/29/24 09/13/21 History cyclosporine 0.05 % eye drops in a 1 drop ophthalmic (eye) DAILY 10/28/19 06/29/24 09/13/21 History dropperette (Restasis) dtlngoli-paxb-hqdm 8 mg-folic 400 1 tablet PO DAILY 10/28/19 06/29/24 09/13/21 History mcg-K 50 mcg-lutein 300 mcg tablet (Centrum Silver Women) omega-3 fatty acids 1,000 mg 1,000 mg PO DAILY 10/28/19 06/29/24 09/13/21 History capsule (Fish Oil Concentrate) timolol maleate 0.5 % eye drops 1 drp ophthalmic (eye) HS 10/28/19 06/29/24 09/13/21 History aspirin 81 mg tablet 81 mg PO DAILY 04/11/20 06/29/24 09/13/21 History biotin 10,000 mcg capsule 10,000 mcg PO DAILY 10/08/23 06/29/24 Unknown History calcium 250 mg (phosphate)-vit D3 1 tablet PO DAILY 10/08/23 06/29/24 Unknown History 12.5 mcg (500 unit) chewable tablet (Citracal-D3 Gummies) grunpahb-naf- 250 mg-dha 90 1 cap PO DAILY 10/08/23 06/29/24 Unknown History mg-epa 160 ow-vmfb-spig-zeax capsule (Ocuvite Adult 50 Plus) lisinopril 20 mg tablet 40 mg PO DAILY 06/01/24 06/29/24 Unknown History rosuvastatin 20 mg tablet 20 mg PO DAILY 06/01/24 06/29/24 Unknown History spironolactone 25 mg tablet 25 mg PO DAILY 06/01/24 06/29/24 Unknown History Allergies Allergy/AdvReac Type Severity Reaction Status Date / Time amlodipine AdvReac edema Verified 06/29/24 11:02 Review of Systems Review of Systems: CONSTITUTIONAL: Endorses malaise, chills, sweats, fever EYES: Denies visual changes, redness, or discharge ENT: Reports rhinorrhea, congestion, sore throat CARDIOVASCULAR: Denies chest pain, palpitations, edema RESPIRATORY: Reports cough, post nasal drainage. 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 She desires To have her2 children is a durable power solid glass rod dowel machine operator. typically she would have her is a durable power solid glass rod dowel machine operator however he is also sick COVID at this time. The patient desires to be a full code. 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 Lifelong nonsmoker l marijuana illicit drugs. Smoking status: Never smoker Alcohol intake: current Drinks per week: 3 Alcohol use details: WINE Substance use: never Substance use type: does not use Lack of Transportation: No Lack of Food: Never True Current Housing: I Have Housing Concerned About Future Housing: No Difficulty Paying Gas/Electric Bills: No Difficulty Paying for Meds: No Currently Unemployed: No Education: High School Diploma/GED Difficulty w/ Childcare or Family Care: No Living arrangements: with family Occupation/Education: retired Gender identity (if verbalized by the patient): Female Sexual Orientation (if Verbalized by the Patient): Straight or Heterosexual Spiritual care concerns: No Exam Narrative: GENERAL: well-appearing EYES: PERRLA, conjunctivae clear ENT: Mucous membranes moist. TM pearly figueroa with dull light reflex bilaterally; no tragal tenderness. no drooling, no hoarseness, no trismus, uvula midline. No tripod positioning, muffled voice, soft palate or pharyngeal wall bulging NECK: Supple. No lymphadenopathy CHEST: Clear to auscultation, breath sounds equal. No wheezing, rhonchi, rales, or stridor. No respiratory distress, speaks in full sentences. HEART: Regular rate and rhythm. No murmur heard. SKIN: Warm, dry, no rash. NEURO: Alert and oriented x3. PSYCH: Normal mood and affect Course Course Emergency Course: Patient is aware of diagnosis, understands and agrees to treatment plan. Anticipatory guidance given. Patient agrees to follow-up as directed and is aware of reasons to seek care at the emergency department. Portions of this record may have been created with voice recognition software Level of Care: Express Care Visit Vital Signs Vital signs: Vital Signs Temperature 98.3 F 06/29/24 11:03 Pulse Rate 75 06/29/24 11:03 Respiratory Rate 20 06/29/24 11:03 Blood Pressure 129/70 06/29/24 11:03 Pulse Oximetry 97 06/29/24 11:03 Oxygen Delivery Room Air 06/29/24 11:03 Temperature 98.3 F 06/29/24 11:03 Pulse Rate 75 06/29/24 11:03 Respiratory Rate 20 06/29/24 11:03 Blood Pressure 129/70 06/29/24 11:03 Pulse Oximetry 97 06/29/24 11:03 Oxygen Delivery Room Air 06/29/24 11:03 reviewed MDM - URI/Sore Throat MDM Narrative Medical decision making narrative: POS flu, Discussed physical exam findings. Advised supportive measures and signs/symptoms to go to the ER. Pt is appropriate for outpt treatment and f/u. Differential Diagnosis Differential diagnosis: Likely upper respiratory infection, sinusitis, viral infection, bronchitis, influenza and pharyngitis Lab Data Labs: Lab Results 06/29/24 Range/Units 11:22 POC Influenza A Ag Positive (Negative) POC Influenza B Ag Negative (Negative) POC SARS CoV-2 Ag Negative (Negative) Discharge Plan Discharge Clinical Impression: Influenza Patient Disposition: Home, Self-Care Condition: Stable Instructions: Influenza (ED) Additional Instructions: Influenza positive You should avoid crowds until you are fever free for 24 hours without the use of fever reducing medications, or the symptoms are improved Rest. Drink plenty of fluids. Tylenol every 8 hours as needed for pain/fever Flonase spray and Zyrtec (or Claritin/Demetra) for sinus pressure/congestion over the counter Cough syrup may cause drowsiness; avoid driving or take it at night time. Follow up with your primary care provider as needed Go to the ER for worsening symptoms or concerns Patient Language: Latvian Prescriptions: New oseltamivir [Tamiflu] 75 mg capsule 75 mg PO Q12H 5 Days Qty: 10 0RF No Action Jardiance 10 mg tablet 10 mg PO DAILY Qty: 90 3RF levothyroxine [Synthroid] 75 mcg tablet 75 mcg PO DAILY Qty: 90 3RF spironolactone 25 mg tablet 25 mg PO DAILY rosuvastatin 20 mg tablet 20 mg PO DAILY lisinopril 20 mg tablet 40 mg PO DAILY alprazolam [Xanax] 0.25 mg tablet 0.25 mg PO TID PRN (Reason: anxiety) Qty: 10 1RF biotin 10,000 mcg capsule 10,000 mcg PO DAILY calcium phosphate-vitamin D3 [Citracal-D3 Gummies] 250 mg-12.5 mcg (500 unit) tablet,chewable 1 tablet PO DAILY Ocuvite Adult 50 Plus 250 mg (90 mg-160 mg) capsule 1 cap PO DAILY aspirin 81 mg Tablet 81 mg PO DAILY Centrum Silver Women 8 mg iron-400 mcg-300 mcg tablet 1 tablet PO DAILY coenzyme Q10 100 mg capsule 200 mg PO DAILY omega-3 fatty acids [Fish Oil Concentrate] 1,000 mg capsule 1,000 mg PO DAILY Restasis 0.05 % dropperette 1 drop EACH EYE DAILY timolol maleate 0.5 % drops 1 drp ophthalmic (eye) HS Rx Instructions: 1 drp into the eye(s) BOTH eyes metoprolol succinate 50 mg tablet extended release 24 hr See Rx Instructions .ROUTE .COMPLEX Qty: 200 1RF Dose Instruction: TAKE 1 TABLET BY MOUTH TWICE DAILY Rx Instructions: TAKE 1 TABLET BY MOUTH TWICE DAILY omeprazole 20 mg capsule,delayed release(DR/EC) 20 mg PO DAILY Qty: 100 1RF Follow-up/Referrals: Morales Carey MD [Primary Care Provider] - Time of Disposition: 11:48
== END 2024-06-29 11:50 | disposition home or self-care (01) ==
PROVIDERS: Emergency Provider Nurse Practitioner Family; PCP Family Medicine
DX: J10.1 Influenza due to other identified influenza virus with other respiratory manifestations (principal); Z20.822 Contact with and (suspected) exposure to COVID-19; I10 Essential (primary) hypertension; I70.0 Atherosclerosis of aorta; K21.9 Gastro-esophageal reflux disease without esophagitis; E78.5 Hyperlipidemia, unspecified; E03.9 Hypothyroidism, unspecified; E04.1 Nontoxic single thyroid nodule; H40.9 Unspecified glaucoma; E66.9 Obesity, unspecified; Z85.42 Personal history of malignant neoplasm of other parts of uterus; Z79.82 Long term (current) use of aspirin
CPT/HCPCS: 87426; 87804; 99213; G0463

== ENCOUNTER 2024-09-14 10:00 | Emergency (ER) | payer MEDICARE, SELFPAY ==
--- NOTE | ~2024-09-14 | XR_ITS ---
HISTORY: medial pain and swelling x1.5 wks, twist injury COMPARISON: None TECHNIQUE: 4 views of the right knee were performed FINDINGS: No acute or subacute fracture, erosion, lytic or sclerotic lesion. Medial and lateral tibiofemoral joint space narrowing is identified. No suprapatellar joint effusion is identified. The infrapatellar joint space is clear. Ossification of the insertion of the quadriceps tendon is identified. IMPRESSION: Degenerative disease, without acute fracture. Reviewed, dictated and finalized at location A.
--- OUTSIDE RECORDS SUMMARY | 2024-09-14 10:02 | XMS_ITS | Clinical Summary ---
Author Organization [facility] [place] Address [address] [place] [address] Care Team Providers Care Inspector Filters Name Role Phone Morales Carey MD Primary Care Provider [phone] Allergies No known active allergies Medications metoprolol XL (TOPROL XL) 50 mg 24 hr tablet Acti ve lovastatin (MEVACOR) 20 mg tablet Active levothyroxine (SYNTHROID) 100 mcg tablet Active timolol (TIMOPTIC-XE) 0.5 % ophthalmic gel-forming Active coenzyme Q10 (CO Q-10) 200 mg capsule Active calcium carbonate-vitam in D3 (OYSCO 500/D) 1,250mg (500mg elemental) - 200 units per tablet Active multivit,iron,m inerals/lutein (CENTRUM SILVER ULTRA WOMEN'S ORAL) Active omega 7-sxm-sdd-fish oil (FISH OIL) 100-160-1,000 mg capsule Active vit A,C and I-dpnnlk-tmfjji ls (OCUVITE WITH LUTEIN) 1,000 unit-200 mg-60 unit-2 mg tabletIndicatio ns:Vitamin Deficiency Prevention Active aspirin (ASPIR-81) 81 mg tablet Active clobetasol (TEMOVATE) 0.05 % external solution Please use to scalp twice weekly. 9 Active ketoconazole (NIZORAL) 2 % shampoo PLEASE USE ON SCALP TWICE WEEKLY 11 9 Active nystatin cream Apply topically as needed Active hydrocortisone 1 % cream Apply to affected area twice daily 30 g 1 9 Active multivit-min/ir on/folic/lutein (CENTRUM SILVER WOMEN ORAL) Centrum Silver Women Active omega 8-uog-uvi-fish oil (Fish OiL) 100-160-1,000 mg capsule Fish Oil Active ADULT LOW DOSE ASPIRIN ORAL Low Dose Aspirin Active mv-mn/om3/dha/e pa/fish/lut/yessica (OCUVITE ADULT 50 PLUS ORAL) Ocuvite Adult 50 Plus Active zinc 50 mg tablet zinc 50 mg tablet Take by oral route. 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 Lentigines 02/08/2021 Multiple benign melanocytic nevi of upper extremity, lower extremity, and trunk 02/08/2021 Other seborrheic dermatitis 06/27/2016 Malignant neoplasm of endometrium 07/13/2015 Benign lipomatous neoplasm o f skin and subcutaneous tissue of left arm 06/22/2015 Dermatitis 06/22/2015 Milia 06/22/2015 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 Hyperlipidemia 02/11/2013 Hypertension 02/11/2013 Malignant neoplasm of corpus uteri, 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/2013 Neoplasm of uncertain behavior of skin 2 Nevus, non-neoplastic 05/04/2011 Other acne 05/04/2011 Inflamed seborrheic keratosis 05/04/2011 Immunizations Immunization Administration Dates Next Due Influenza, Quadrivalent, Hig h Dose, Preservative Free, Intrr 01/19/2020 Influenza, Trivalent, High D ose, Split, Preservative Free, Intramuscular 01/19/2019,01/29/2018 Influenza, Unspecified 01/17/2021,01/20/2020 Pfizer SARS-CoV-2 Monovalent Vaccination (12+ Yrs) PURPLE 06/22/2020 ZOSTER LIVE 10/10/2017 ZOSTER Recombinant 01/01/2018,06/03/2017 Surgical History Surgery Date Site/Laterality Comments SD LIG/TRNSXJ FLP TUBE ABDL/ VAG APPR UNI/BI Tubal Ligation - (Added by TW Conv) TOTAL HIP ARTHROPLASTY Hip Replacement - (Added by TW Conv) CATARACT EXTRACTION Cataract Surgery - (Added by TW Conv) SD TOTAL ABDOMINAL HYSTERECT W/WO RMVL TUBE OVARY Hysterectomy - (Added by TW Conv) Medical History Medical History Date Comments Encounter for gynecological examination without abnormal finding Well woman exam - (Added by TW Conv) Personal history of malignan t neoplasm of other parts of uterus History of endometrial cance r - (Added by TW Conv) Family History Medical History Relation Name Comments Hypertension Father Family history of hypertension - (Added by TW Conv) Colon cancer Mother Family history of malignant neoplasm of colon - (Added by TW Conv) Hypertension Mother Family history of hypertension - (Added by TW Conv) Relation Name Status Comments Father Mother Social History Tobacco Use Types Packs/Day Years Used Date Smoking Tobacco: Never Smokeless Tobacco: Never Alcohol Use Standard Drinks/Week Comments Yes 0 (1 standard drink = 0.6 oz pur e alcohol) Comments No Sex and Gender Information Value Date Recorded Sex Assigned at Not on file Legal Sex Female 8:13 AM BOX LOADER Gender Identity Not on file Sexual Orientation Not on file Obstetrics History Para Term AB IAB SAB Ectopic Multiple Livin g Live Births 2 2 2 2 2 Date Outcome GA Total Labor Labor/2nd/3rd Weight Sex Type Anes PTL Taylor A1 A5 Name Clin Term Term Last Filed Vital Signs Vital Sign Reading Time Taken Comments Blood Pressure 172/79 05/09/2022 11:39 AM BOX LOADER Pulse 79 05/09/2022 11:39 AM BOX LOADER Temperature 36.6 C (97.8 F) 05/09/2022 11:39 AM BOX LOADER Respiratory Rate 16 05/09/2022 11:39 AM BOX LOADER Oxygen Saturation 96% 05/09/2022 11:39 AM BOX LOADER Inhaled Oxygen Concentration - - Weight 71.3 kg (157 lb 1.6 oz) 05/09/2022 11:39 AM BOX LOADER Height 156.2 cm (5' 1.5) 05/09/2022 11:39 AM CS T Body Mass Index 29.21 05/09/2022 11:39 AM BOX LOADER Plan of Treatment Health Maintenance Due Date Last Done Comments Depression Screening 1935 Fall Risk Assessment 1935 DTaP/Tdap/Td Vaccine (1 - Tdap) 1948 Hepatitis B Screening 08/31/1955 Pneumococcal vaccine 65+ (1 of 1 - PCV) 08/31/1987 Well Visit 65+ 2002 Covid-19 Vaccine (2 - 2023-2 5 season) 2023 06/22/2020 Influenza Vaccine (Season Ended) 2024 01/17/2021, 01/20/2020, 01/19/2020, Additional history exists Zoster Vaccine Completed 01/01/2018, 09/21, 06/03/[address] [facility] MEDICARE ADVANTAGE [facility] MEDICARE Address: [address] [address] Care Teams Inspector Filters Relationship Specialty Start Date End Date Morales Carey MD PCP - General Family Medicine 02/11/19
--- OUTSIDE RECORDS SUMMARY | 2024-09-14 10:02 | XMS_ITS | CONTINUITY OF CARE DOCUMENT ---
Author Name emili mock Address Unknown Organization [facility] Address [address] [place] [address] [address] [place] [address] Phone [phone] Care Team Providers Care Bisque Cleaner Name Role Phone emili mock Unavailable Unavailable INSURANCE PROVIDERS Payer name Policy type / Coverage type [place] red democrat [place] [id number] [place] [id number]
--- OUTSIDE RECORDS SUMMARY | 2024-09-14 10:02 | XMS_ITS | Referral Summary ---
Author Organization [facility] Address [address] [place] [address] Care Team Providers Care Computed Tomography Technician Name Role Phone Morales Carey MD Primary Care Provider [phone] Allergies No known active allergies Medications metoprolol [...] (CENTRUM SILVER ULTRA WOMEN'S ORAL) Active omega 6-ftz-tkx-fish oil (FISH OIL) 100-160-1,000 mg capsule Active vit A,C and Q-mdpkmr-ocaeje ls (OCUVITE WITH LUTEIN) 1,000 unit-200 mg-60 [...] WOMEN ORAL) Centrum Silver Women Active omega 1-mzb-fwj-fish oil (Fish OiL) 100-160-1,000 mg capsule Fish [...] 06/22/2020 ZOSTER LIVE 10/10/2017 ZOSTER Recombinant 01/01/2018,06/03/2017 Social History Tobacco Use Types Packs/Day Years Used Date Smoking Tobacco: Never Smokeless Tobacco: Never Alcohol Use Standard Drinks/Week Comments Yes 0 (1 standard drink = 0.6 oz pur e alcohol) Comments No Sex and Gender Information Value Date Recorded Sex Assigned at Not on file Legal Sex Female 8:13 AM SUPERVISOR LUMP ROOM Gender Identity Not on file Sexual Orientation Not on file Last Filed Vital Signs Vital Sign Reading Time Taken Comments Blood Pressure 172/79 05/09/2022 11:39 AM SUPERVISOR LUMP ROOM Pulse 79 05/09/2022 11:39 AM SUPERVISOR LUMP ROOM Temperature 36.6 C (97.8 F) 05/09/2022 11:39 AM SUPERVISOR LUMP ROOM Respiratory Rate 16 05/09/2022 11:39 AM SUPERVISOR LUMP ROOM Oxygen Saturation 96% 05/09/2022 11:39 AM SUPERVISOR LUMP ROOM Inhaled Oxygen Concentration - - Weight 71.3 kg (157 lb 1.6 oz) 05/09/2022 11:39 AM SUPERVISOR LUMP ROOM Height 156.2 cm (5' 1.5) 05/09/2022 11:39 AM CS T Body Mass Index 29.21 05/09/2022 11:39 AM SUPERVISOR LUMP ROOM Plan of Treatment Not on file Insurance [facility] MEDICARE ADVANTAGE [facility] MEDIC[facility] Address: [facility] [address] [place] [address] Care Teams Computed Tomography Technician Relationship Specialty Start Date End Date Morales Carey MD PCP - General Family Medicine 02/11/19
--- OUTSIDE RECORDS SUMMARY | 2024-09-14 10:02 | XMS_ITS | Clinical Summary ---
Author Organization [facility] Address [address] [place] [address] Care Team Providers Care Diversity Manager Name Role Phone Morales Carey MD Primary Care Provider [phone] Source Comments [facility],non-owned Affiliates and Associated Physician Practices is amultiple site organization consisting of ambulatory clinics and hospital sitesin [place], [place], [place] and [place]. This disclosure is being madepursuant to the Care Everywhere program and may not contain all information available regarding this patient. Last updated 18.[facility] Allergies No known active allergies Medications * Be aware that medications may not be up to date on this document. Alwaysverify current medications with the patient. aspirin EC (ECOTRIN) 81 MG tablet Take by mouth once daily Active lovastatin (MEVACOR) 20 MG tablet Take by mouth once daily Active levothyroxine (SYNTHROID) 100 MCG tablet Take by mouth once daily Active ubiquinine/antonio min-e (COENZYME Q10) 200 MG capsule Take by mouth once daily Active Multiple Vitamins-Minera ls (CENTRUM SILVER 50+WOMEN) TABS Activ e Multiple Vitamins-Minera ls (OCUVITE ADULT 50+ PO) Take by mouth once daily Active [place]-3 Fatty Acids (RA FISH OIL) 1000 MG Take by mouth once daily Active metoprolol succinate XL 24hr (TOPROL XL) 50 MG tablet Take 1 (one) tablet by mouth once daily Active urea (CARMOL;VANAMID E) 40 % cream Apply to dry skin on elbows, knees, and feet, daily as needed. 30 day supply. 85 g 2 0 Active Additional Information Patient not taking.Reported on 02/14/2022 timolol maleate (TIMOPTIC) 0.5 % ophthalmic solution Instill 1 (one) drop into both eyes once daily 1 Active omeprazole (PRILOSEC) 20 MG capsule Take 1 (one) capsule by mouth once daily 1 Active RESTASIS 0.05 % ophthalmic suspension Instill 1 (one) drop into both eyes once daily 0 Active amoxicillin (AMOXIL) 500 MG capsule Take 4 (four) capsules by mouth 1 Hour prior to Dental Appointment 1 Active ALPRAZolam (XANAX) 0.25 MG tablet Take 1 (one) tablet by mouth 3 times daily as needed anxiety 1 Active miconazole (LOTRIMIN AF) 2 % powderIndicatio ns:Candidal intertrigo Apply to affected area 2 times daily 71 g 3 1 Active Additional Information Patient not taking.Reported on 06/17/2024 clobetasol (Temovate) 0.05 % solutionIndicat ions:Other seborrheic dermatitis Please use to scalp twice weekly as needed for itchy 50 mL 11 2 Active Additional Information Patient not taking.Reported on 06/17/2024 aspirin EC (Ecotrin) 81 MG tablet Take 1 (one) tablet by mouth once daily Active biotin 300 MCG tablet Take 2 (two) tablets by mouth once daily Active ubiquinine/antonio min-e (Coenzyme Q10) 200 MG capsule Take 1 (one) capsule by mouth once daily Active levothyroxine (Synthroid) 75 MCG tablet 3 Active lisinopril (Prinivil; Zestril) 40 MG tablet Take 0.5 (one-half) tablet by mouth once daily 3 Active lovastatin (Mevacor) 20 MG tablet Take 1 (one) tablet by mouth once daily Active metoprolol succinate-hydro CHLOROthiazide 24 hr (Dutoprol) 50-12.5 MG tablet once daily Active timolol gel-forming (Timoptic-XE) 0.5 % ophthalmic gel-forming 1 (one) drop by Ophthalmic route once daily Active Jardiance 10 MG tablet 4 Active rosuvastatin (Crestor) 20 MG tablet Take 1 (one) tablet by mouth once daily 4 Active spironolactone (Aldactone) 25 MG tablet Take 1 (one) tablet by mouth once daily Active Active Problems Problem Noted Date Diagnosed Date Actinic keratosis 02/08/2021 Candidal intertrigo 02/08/2021 Inflamed seborrheic keratosis 02/08/2021 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 Multiple benign melanocytic nevi of upper extremity, lower extremity, and trunk 02/08/2021 Lentigines 02/08/2021 Other seborrheic dermatitis 06/27/2016 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 Benign lipomatous neoplasm o f skin and subcutaneous tissue of left arm 06/22/2015 Dermatitis 06/22/2015 Milia 06/22/2015 Other acne 05/04/2011 Nevus, non-neoplastic 05/04/2011 Neoplasm of uncertain behavior of skin 2 Other seborrheic keratosis 05/04/2011 Encounters Date Type Department Care Team Description 06/17/2024 9:40 AM PILOT INSTRUCTOR Office Visit [facility] - Dermatology [address] [place] [phone] Lisa Fair MD Seborrheic keratoses, inflamed (Primary Dx); Lentigines; Seborrheic keratoses; Intertrigo 06/17/2024 Travel from Last 3 Months Immunizations Immunization Administration Dates Next Due Gucash primary monoval ent 12+ yr 0.3mL Purple cap 06/22/2020 INFLUENZA VACCINE 01/17/2021,01/20/2020 INFLUENZA VACCINE, HIGH-DOSE , QUADR. (FLUZONE HIGH-DOSE QUADRIVALENT; 65Y+), 0.7 ML (HD-IIV4) 01/19/2020,01/19/2019 Family History Medical History Relation Name Comments None Known Brother None Known Father None Known Maternal Aunt None Known Maternal Grandfather None Known Maternal Grandmother None Known Maternal Uncle Cancer Mother colon; Status: None Known Other None Known Paternal Aunt None Known Paternal Grandfather None Known Paternal Grandmother None Known Paternal Uncle None Known Sister Allergy (Severe) Neg Hx Asthma Neg Hx CVA Neg Hx Cancer - Breast Neg Hx Cancer - Other Neg Hx Cancer - Skin, Melanoma Neg Hx Cancer - Skin, Non Melanoma Neg Hx Eczema Neg Hx Hemophilia Neg Hx Psoriasis Neg Hx Rashes/Skin Problems Neg Hx Relation Name Status Comments Brother Father Maternal Aunt Maternal Grandfather Maternal Grandmother Maternal Uncle Mother Other Paternal Aunt Paternal Grandfather Paternal Grandmother Paternal Uncle Sister Social History Tobacco Use Types Packs/Day Years Used Date Smoking Tobacco: Never Smokeless Tobacco: Never Tobacco Cessation:Counseling Given: Not Answered Alcohol Use Standard Drinks/Week Comments Yes 0 (1 standard drink = 0.6 oz pur e alcohol) Comments Unknown Sex and Gender Information Value Date Recorded Sex Assigned at Not on file Legal Sex Female 5:42 PM PILOT INSTRUCTOR Gender Identity Female 05/19/2023 11:38 AM PILOT INSTRUCTOR Sexual Orientation Not on file Last Filed Vital Signs Vital Sign Reading Time Taken Comments Blood Pressure 179/80 07/13/2015 8:26 AM CDT Pulse 65 07/13/2015 8:26 AM CDT Temperature - - Respiratory Rate - - Oxygen Saturation 98% 07/13/2015 8:26 AM CDT Inhaled Oxygen Concentration - - Weight 74.8 kg (165 lb) 07/13/2015 8:26 AM CDT Height 157.5 cm (5' 2) 07/13/2015 8:26 AM CDT Body Mass Index 30.18 07/13/2015 8:26 AM CDT Plan of Treatment Upcoming Encounters Date Type Department Care Team (Late st Contact Info) Description 06/16/2025 9:40 AM PILOT INSTRUCTOR Office Visit [facility] - Dermatology [address] [place] [address], [place] [id number] Lisa Fair MD [address] [place] [address] [address] [place] [address] Health Maintenance Due Date Last Done Comments BONE DENSITY TESTING 1935 DTAP/TDAP/TD VACCINES (1 - Tdap) 1956 PNEUMOCOCCAL VACCINE 50+ (1 of 1 - PCV) 08/31/1987 ZOSTER VACCINE (1 of 2) 08/31/1987 Respiratory Syncytial Virus (RSV) Vaccine Pt: or over 60 yrs (1 - 1-dose 75+ series) 2012 COVID-19 VACCINE (2 - 2024-25 season) 2023 06/22/2020 DEPRESSION SCREENING 04/22/2024 MEDICARE AWV CALENDAR YEAR 2024 INFLUENZA VACCINE (Season Ended) 2024 01/17/2021, 01/20/2020, 01/19/2020, Additional history exists HEPATITIS B VACCINE Aged Out No longe r eligible based on patient's age to complete this topic HIB VACCINE Aged Out No longer eligi ble based on patient's age to complete this topic HPV VACCINE Aged Out No longer eligi ble based on patient's age to complete this topic MENINGOCOCCAL (Group B) VACCINE SHARED DECISION-MAKING Aged Out No longer eligible based on patient's age to complete this topic MENINGOCOCCAL GROUPS A/C/Y/W VACCINE Aged Out No longer eligible based on patient's age to complete this topic Procedures Procedure Name Priority Date/Time Associated Diagnosis Comments [place] DESTRUCT BENIGN LESION, 1-14 Routine 06/17/2024 10:35 AM PILOT INSTRUCTOR Seborrheic keratoses, inflamed from Last 3 Months Results * AZ DESTRUCT BENIGN LESION, 1-14 (06/17/2024 10:35 AM PILOT INSTRUCTOR) Lisa Will MD - 06/17/2024 10:35 AM PILOT INSTRUCTOR Lisa Fair MD 06/28/2024 11:54 PM Diagnosis and treatment options discussed. Cryotherapy (Liquid Nitrogen) to 10 ISKs on back lesions for 7-8 seconds each. Number of cycles: 1. Wound care reviewed. Lisa Fair MD PROCEDURE/MINOR SURGICAL ORD ERABLES Final Result from Last 3 Months Insurance MANAGED MEDICARE [place] [id number] Care Teams Diversity Manager Relationship Specialty Start Date End Date Morales Carey MD [address] [place] [phone] PCP - General 03/22/08
--- OUTSIDE RECORDS SUMMARY | 2024-09-14 10:04 | XMS_ITS | CONTINUITY OF CARE DOCUMENT ---
Author Name emili mock Address Unknown Organization [facility] Address [address] [place] [address] [address] [place] [address] Phone [phone] Care Team Providers Care Opener Name Role Phone emili mock Unavailable Unavailable INSURANCE PROVIDERS Payer name Policy type / Coverage type [place] red republican ID [employer] [employer] [place] Blue Shield [id number] [place] [id number]
[2024-09-14 10:37] VITALS: BP 149/58; PULSE 66; RESP 16; TEMP 36.3; O2SAT 98
--- NOTE | 2024-09-14 13:02 | ED_ITS ---
HPI - Extremity Problem General Chief complaint: Extremity Problem,Nontraumatic Stated complaint: RT Knee Pain Time Seen by Provider: 09/14/24 11:00 Source: patient and RN notes reviewed Mode of arrival: ambulatory Limitations: no limitations History of Present Illness HPI Narrative: 89-year-old female presents Express Care complaining of right knee injury approximately 1.5 weeks ago. Patient said she is in a yd treating it for moles when she found a hole in the yd and stepped on it and injured her right knee. Patient denies any falls, hitting her head, or any other injuries. Patient has been using ice and ibuprofen to help with pain without relief. Patient says she has pain with ambulating however she is able to bear weight on her right leg. Patient denies any numbness or tingling or any other symptoms. Related Data Home Medications ?Medication ?Instructions ?Recorded ?Confirmed ?Last Taken ?Type coenzyme Q10 100 mg capsule 200 mg PO DAILY 10/28/19 08/03/24 09/13/21 History cyclosporine 0.05 % eye drops in a 1 drop ophthalmic (eye) DAILY 10/28/19 08/03/24 09/13/21 History dropperette (Restasis) carqsolp-ekji-ahgs 8 mg-folic 400 1 tablet PO DAILY 10/28/19 08/03/24 09/13/21 History mcg-K 50 mcg-lutein 300 mcg tablet (Centrum Silver Women) omega-3 fatty acids 1,000 mg 1,000 mg PO DAILY 10/28/19 08/03/24 09/13/21 History capsule (Fish Oil Concentrate) timolol maleate 0.5 % eye drops 1 drp ophthalmic (eye) HS 10/28/19 08/03/24 09/13/21 History aspirin 81 mg tablet 81 mg PO DAILY 04/11/20 08/03/24 09/13/21 History biotin 10,000 mcg capsule 10,000 mcg PO DAILY 10/08/23 08/03/24 Unknown History calcium 250 mg (phosphate)-vit D3 1 tablet PO DAILY 10/08/23 08/03/24 Unknown History 12.5 mcg (500 unit) chewable tablet (Citracal-D3 Gummies) gyexgrlf-mrd-[id number] 250 mg-dha 90 1 cap PO DAILY 10/08/23 08/03/24 Unknown History mg-epa 160 oz-whhe-pwom-zeax capsule (Ocuvite Adult 50 Plus) lisinopril 20 mg tablet 40 mg PO DAILY 06/01/24 08/03/24 Unknown History rosuvastatin 20 mg tablet 20 mg PO DAILY 06/01/24 08/03/24 Unknown History spironolactone 25 mg tablet 25 mg PO DAILY 06/01/24 08/03/24 Unknown History Allergies Allergy/AdvReac Type Severity Reaction Status Date / Time amlodipine AdvReac Unknown edema Verified 09/14/24 10:56 Review of Systems Review of Systems: CONSTITUTIONAL: Denies fever, chills, or sweats. EYES: Denies visual changes, redness, or discharge. ENT: Denies rhinorrhea, congestion, sore throat, or otalgia. CARDIOVASCULAR: Denies chest pain, syncope, dizziness, lightheadedness, palpitations, or edema. RESPIRATORY: Denies cough or dyspnea. GASTROINTESTINAL: Denies abdominal pain, nausea, vomiting, or diarrhea. GENITOURINARY: Denies dysuria or hematuria. SKIN: Denies rash, wound, or itching. MUSCULOSKELETAL: Denies back pain, neck pain, joint pain, or myalgia. Positive for right knee injury and swelling NEUROLOGIC: Denies headache, numbness, or weakness. PSYCHIATRIC: Denies anxiety or depression. All other systems reviewed are negative, except as documented in HPI. 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 She desires To have her2 children is a durable power ip technology transactions attorney. typically she would have her is a durable power ip technology transactions attorney however he is also sick COVID at this time. The patient desires to be a full code. 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 Lifelong nonsmoker l marijuana illicit drugs. Smoking status: Never smoker Alcohol intake: current Drinks per week: 3 Alcohol use details: WINE Substance use: never Substance use type: does not use Lack of Transportation: No Lack of Food: Never True Current Housing: I Have Housing Concerned About Future Housing: No Difficulty Paying Gas/Electric Bills: No Difficulty Paying for Meds: No Currently Unemployed: No Education: High School Diploma/GED Difficulty w/ Childcare or Family Care: No Living arrangements: with family Occupation/Education: retired Gender identity (if verbalized by the patient): Female Sexual Orientation (if Verbalized by the Patient): Straight or Heterosexual Spiritual care concerns: No Comments At the time of my signature, I reviewed and agree with the nursing past medical, surgical, social, and family history. There is no relevant family history pertinent to the patient complaint. Exam Narrative: GENERAL: This is a well-nourished, well-developed adult, in no apparent distress. They are non ill-appearing, nontoxic appearing. HEAD: normocephalic, atraumatic. EYES: Sclera clear/white. Vision is grossly intact. Conjunctiva normal. Extraocular movement intact. EARS: External ears normal Hearing grossly intact. NOSE: External nose normal THROAT: Mucous membranes moist NECK: Neck supple CARDIOVASCULAR: Regular rate and rhythm RESPIRATORY: Respiratory rate normal, respiratory effort nonlabored, no respiratory distress NEURO: awake, alert, and oriented to person, place and time. There were no obvious focal neurologic abnormalities. EXTREMITIES: Right knee: No obvious deformity or or injury. No bruising or erythema to knee. There is mild swelling to the medial part of the lower knee. Patella is normal without bony tenderness or dislocation. Normal range of motion. No pain with range of motion. Mild tenderness to palpation to the area of swelling. Capillary refill less than 3 seconds. Pulse 2 +palpable. Normal sensation. Neurovascular status intact distal injury. Negative Norman's test. No valgus or varus laxity. BACK: Nontender without deformity. Course Course Emergency Course: Portions of this record may have been created with voice recognition software Level of Care: Express Care Visit Vital Signs Vital signs: Vital Signs Temperature 97.3 F L 09/14/24 10:37 Pulse Rate 66 09/14/24 10:37 Respiratory Rate 16 09/14/24 10:37 Blood Pressure 149/58 H 09/14/24 10:37 Pulse Oximetry 98 09/14/24 10:37 Oxygen Delivery Room Air 09/14/24 10:37 Temperature 97.3 F L 09/14/24 10:37 Pulse Rate 66 09/14/24 10:37 Respiratory Rate 16 09/14/24 10:37 Blood Pressure 149/58 H 09/14/24 10:37 Pulse Oximetry 98 09/14/24 10:37 Oxygen Delivery Room Air 09/14/24 10:37 Reviewed MDM - Extremity (Nontraumatic) MDM Narrative Medical decision making narrative: X-ray of knee show no evidence of fracture or acute findings. Did show degenerative changes however. Likely patient has a knee strain from injury in the yd. Patient was given Quintin wrap for comfort. Advised patient to follow-up with her orthopedist that she see in the past if pain persist. Discussed physical exam findings. Advised supportive measures and signs/symptoms to go to the ER. Pt is appropriate for outpt treatment and f/u. Differential Diagnosis Differential diagnosis: Likely other (Knee fracture, knee strain, bursitis) Imaging Data Radiologist's impression: ITS Impressions Knee X-Ray 09/14/24 11:23 IMPRESSION: Degenerative disease, without acute fracture. Critical Care Time Critical Care Time Critical Care Time: No Discharge Plan Discharge Clinical Impression: Injury of knee, right Qualifiers: Encounter type: initial encounter Qualified Code(s): S89.91XA - Unspecified injury of right lower leg, initial encounter Patient Disposition: Home Condition: Stable Instructions: Knee Pain (ED) Additional Instructions: Rest and elevate the leg; bear weight as tolerated Apply ice 15-20 minute intervals several times a day Keep it wrapped with QUINTIN Motrin 600mg -800mg every 8 hours, alternate with Tylenol 1000mg every 8 hours as needed You may consider using diclofenac topical gel [id number] to help with your knee pain. Applied directly to the affected area. Follow instructions on the bottle. May also use xopz-xbg-[id number] lidocaine patches as needed for pain. Follow up with your primary care provider or orthopedist in 1 week if pain persists. Go to the ER if you develops any redness, swelling, discharge, fevers, or any other concerns. Patient Language: Burmese Prescriptions: No Action Jardiance 10 mg tablet 10 mg PO DAILY Qty: 90 3RF levothyroxine [Synthroid] 75 mcg tablet 75 mcg PO DAILY Qty: 90 3RF spironolactone 25 mg tablet 25 mg PO DAILY rosuvastatin 20 mg tablet 20 mg PO DAILY lisinopril 20 mg tablet 40 mg PO DAILY alprazolam [Xanax] 0.25 mg tablet 0.25 mg PO TID PRN (Reason: anxiety) Qty: 10 1RF biotin 10,000 mcg capsule 10,000 mcg PO DAILY calcium phosphate-vitamin D3 [Citracal-D3 Gummies] 250 mg-12.5 mcg (500 unit) tablet,chewable 1 tablet PO DAILY Ocuvite Adult 50 Plus 250 mg (90 mg-160 mg) capsule 1 cap PO DAILY aspirin 81 mg Tablet 81 mg PO DAILY Centrum Silver Women 8 mg iron-400 mcg-300 mcg tablet 1 tablet PO DAILY coenzyme Q10 100 mg capsule 200 mg PO DAILY omega-3 fatty acids [Fish Oil Concentrate] 1,000 mg capsule 1,000 mg PO DAILY Restasis 0.05 % dropperette 1 drop EACH EYE DAILY timolol maleate 0.5 % drops 1 drp ophthalmic (eye) HS Rx Instructions: 1 drp into the eye(s) BOTH eyes metoprolol succinate 50 mg tablet extended release 24 hr See Rx Instructions .ROUTE .COMPLEX Qty: 200 1RF Dose Instruction: TAKE 1 TABLET BY MOUTH TWICE DAILY Rx Instructions: TAKE 1 TABLET BY MOUTH TWICE DAILY omeprazole 20 mg capsule,delayed release(DR/EC) 20 mg PO DAILY Qty: 100 1RF Follow-up/Referrals: Morales Carey MD [Primary Care Provider] - Time of Disposition: 11:51
== END 2024-09-14 11:53 | disposition home or self-care (01) ==
PROVIDERS: PCP Family Medicine
DX: S89.91XA Unspecified injury of right lower leg, initial encounter (principal); X58.XXXA Exposure to other specified factors, initial encounter; H40.9 Unspecified glaucoma; I10 Essential (primary) hypertension; I70.0 Atherosclerosis of aorta; K21.00 Gastro-esophageal reflux disease with esophagitis, without bleeding; E78.5 Hyperlipidemia, unspecified; E03.9 Hypothyroidism, unspecified; E66.9 Obesity, unspecified; Z68.29 Body mass index [BMI] 29.0-29.9, adult; Z85.42 Personal history of malignant neoplasm of other parts of uterus
CPT/HCPCS: 73564; 99213; G0463

== ENCOUNTER 2025-01-29 08:49 | Outpatient (CLI) | payer MEDICARE, SELFPAY ==
--- NOTE | ~2025-01-29 | US_ITS ---
EXAMINATION: US renal BI, 01/29/2025 8:51 CDT HISTORY: N18.30 - Chronic kidney disease, stage 3 unspecified Comparison: None Technique: Richardson-scale and color Doppler images were obtained. Findings: KIDNEYS: Renal cortices intact, no solid masses, cysts or calculi, no hydronephrosis. Right Kidney: Right kidney 9.6 x 3.9 x 4.3 cm. Left Kidney: Left kidney 10.6 x 3.9 x 4.4 cm. Bladder: The bladder is unremarkable. . Impression: No acute abnormality. Reviewed, dictated and finalized at location P. Impression: No acute abnormality.
== END 2025-01-29 08:50 | disposition home or self-care (01) ==
LOC: GOSHIMG 08:50
PROVIDERS: PCP Family Medicine; Visit Provider Family Medicine
DX: N18.30 Chronic kidney disease, stage 3 unspecified (principal)
CPT/HCPCS: 76770